=== PATIENT | female | born 1935 | race Caucasian/White ===

== ENCOUNTER 2021-03-02 13:55 | Outpatient (CLI) | payer MEDICARE ==
[2021-03-02 15:58] LABS: Hemoglobin 12.4 g/dL (12.0-15.5); Mean Corpuscular HGB CONC 30.2 g/dL (32.0-36.0); Mean Corpuscular Hemoglobin 26.8 pg (27.0-33.0); Mean Corpuscular Volume 88.6 fl (81.6-98.3); Platelet Count 444 10x3/uL (150-450); RBC Distribution Width 15.8 % (11.5-14.5); Red Blood Cell (RBC) Count 4.63 10x6/uL (3.90-5.03); White Blood Cell (WBC) Count 16.1 10x3/uL (3.5-10.5)
[2021-03-02 16:02] LABS: Prothrombin Time 10.6 sec (9.5-12.1)
[2021-03-02 17:13] LABS: Anion Gap 20 mmol/L (10-20); BUN (Urea Nitrogen) 19 mg/dL (9.8-20.1); Calc. Creatinine Clearance 0 mL/min (70-130); Calcium 9.6 mg/dL (7.8-10.44); Carbon Dioxide 24 mmol/L (23-31); Chloride 98 mmol/L (98-107); Glucose 107 mg/dL (83-110); Potassium 4.7 mmol/L (3.5-5.1); Sodium 137 mmol/L (136-145)
[2021-03-03 01:53] LABS: SARS-CoV-2 PCR by NAA Not Detected (NotDetected)
== END 2021-03-02 13:56 | disposition home or self-care (01) ==
LOC: CSHLAB 13:55
PROVIDERS: ATTEND Specialist
DX: Z01.818 Encounter for other preprocedural examination (principal); Z20.822 Contact with and (suspected) exposure to COVID-19; R94.31 Abnormal electrocardiogram [ECG] [EKG]
CPT/HCPCS: 80048; 85027; 85610; 85730; 87635; 93005; 93010; U0003; U0005

== ENCOUNTER → 2021-03-07 | Day surgery (SDC) | payer MEDICARE ==
[~2021-03-07] MED LIST: Aspirin 325 MG TAB ONE; Atropine Sulfate 0.4 mg/1 ml Vial ONE; Fentanyl 100 MCG/2 ML VIAL ONE; Heparin 10,000 UNITS/ 10 ML VIAL ONE; Lidocaine 1% (PF) 30 ML VIAL ONE; Midazolam HCl 2 mg/2 ml Vial ONE; PHENYLEPHRINE-NS 100 MCG/ML 10 ML SYRINGE ONE
== END ==
LOC: CSHSDC 07:53
PROVIDERS: ATTEND Specialist
DX: I65.23 Occlusion and stenosis of bilateral carotid arteries (principal); I25.10 Atherosclerotic heart disease of native coronary artery without angina pectoris; I10 Essential (primary) hypertension; E78.5 Hyperlipidemia, unspecified; E11.9 Type 2 diabetes mellitus without complications; Z95.5 Presence of coronary angioplasty implant and graft; I34.0 Nonrheumatic mitral (valve) insufficiency; M81.0 Age-related osteoporosis without current pathological fracture
CPT/HCPCS: 36140; 36215; 36222; 36225; 36227; 93005; C1760; 93010; 99152; 99153; J0461; J1644; J2001; J2250; J3010

== ENCOUNTER 2022-09-19 12:04 | Inpatient (IN) | payer MEDICARE ==
[2022-09-19 13:55] LABS: #Basophils 0.1 10x3/uL (0.0-0.2); #Monocytes 1.3 10x3/uL (0.0-1.1); %Basophils 0.5 % (0.0-2.0); %Eosinophils 0.2 % (0.0-6.0); %Lymphocytes 13.5 % (18.0-47.0); %Monocytes 9.6 % (0.0-10.0); %Neutrophils 75.8 % (40.0-75.0); Hemoglobin 12.5 g/dL (12.0-15.5); Mean Corpuscular HGB CONC 32.8 g/dL (32.0-36.0); Mean Corpuscular Hemoglobin 27.8 pg (27.0-33.0); Mean Corpuscular Volume 84.9 fl (81.6-98.3); Mean Platelet Volume 9.4 fl (7.4-10.4); Platelet Count 429 10x3/uL (150-450); RBC Distribution Width 14.2 % (11.5-14.5); Red Blood Cell (RBC) Count 4.49 10x6/uL (3.90-5.03); White Blood Cell (WBC) Count 13.2 10x3/uL (3.5-10.5)
[2022-09-19 14:06] LABS: CRP (Inflammatory) 1.22 mg/dL (= or < 0.5)
[2022-09-19 14:08] LABS: ALT (SGPT) 8 U/L (8-55); AST (SGOT) 14 U/L (5-34); Alkaline Phosphatase 87 U/L (40-110); Anion Gap 18 mmol/L (10-20); BUN (Urea Nitrogen) 16 mg/dL (9.8-20.1); Bilirubin, Total 0.5 mg/dL (0.2-1.2); Calc. Creatinine Clearance 0 mL/min (70-130); Calcium 8.8 mg/dL (7.8-10.44); Carbon Dioxide 20 mmol/L (23-31); Chloride 100 mmol/L (98-107); Estimated GFR 44; Globulin 2.7 g/dL (2.4-3.5); Glucose 162 mg/dL (83-110); Potassium 3.4 mmol/L (3.5-5.1); Protein, Total 6.7 g/dL (5.8-8.1); Sodium 135 mmol/L (136-145)
[2022-09-19] MEDS ORDERED: Vancomycin HCl 500 MG VIAL ONE (14:18)
[2022-09-19 14:42] LABS: SARS-CoV-2 NAA Rapid Test Not Detected (NotDetected)
[2022-09-19 15:23] LABS: Bilirubin Neg (Negative); Blood, Urine 50 (Negative); Clarity Cloudy (Clear); Glucose, Urine (Dipstick) Normal (Negative); Ketone, Urine Negative (Negative); Leukocyte 500 (Negative); Nitrite Positive (Negative); Protein, Urine (Dipstick) 30 mg/dl (Neg-Trace); Specific Gravity, Urine 1.025 (1.005-1.030); Urobilinogen Normal mg/dL (Less than 2)
[2022-09-19 15:45] LABS: WBC/HPF Greater than 50 HPF (0-3)
[2022-09-19 15:46] LABS: Bacteria/HPF 3+ HPF (None Seen); Squamous Epithelial 0-3 HPF (0-3); Transitional Epithelial 0-3 HPF (None Seen)
[2022-09-19 15:47] LABS: Mucous/LPF 1+ LPF (<2+)
[2022-09-19] MEDS ORDERED: cefTRIAXone\\ROCEPHIN 2 GM VIAL ONE (16:34)
[2022-09-19 16:36] LABS: Lactic Acid 3.8 mmol/L (0.5-2.2)
[2022-09-19 16:49] LABS: Troponin I 0.024 ng/mL (< 0.028)
[2022-09-19] MEDS ORDERED: Ondansetron PF 4 MG/2 ML Vial IVP PRN (17:05)
[2022-09-19] MEDS ORDERED: Dextrose 5% in Water 1,000 ML IV PRN (17:05)
[2022-09-19] MEDS ORDERED: Dextrose 50% Abboject 50 ML SYRINGE SLOW IVP PRN (17:05)
[2022-09-19] MEDS ORDERED: HumaLOG 300 UNITS/3 ML VIAL SC PRN ×2 (17:05)
[2022-09-19] MEDS ORDERED: Ondansetron ODT 4 MG TAB PO PRN (17:05)
[2022-09-19] MEDS ORDERED: hydrALAZINE 20 MG/ML VIAL SLOW IVP PRN (17:05)
[2022-09-19] MEDS ORDERED: Acetaminophen 500 MG TAB PO PRN (17:05)
[2022-09-19] MEDS ORDERED: Communication Order-Pharmacy FS PRN (17:05)
[2022-09-19 19:51] LABS: Troponin I 0.029 ng/mL (< 0.028)
[2022-09-19 20:06] LABS: Lactic Acid 3.6 mmol/L (0.5-2.2)
[2022-09-19 21:28] VITALS: BMI 29.1
[2022-09-19] MEDS: Sodium Chloride 0.9% 1,000 ML IV SCH (22:14)
[2022-09-19] MEDS: traZODone HCl 50 MG TAB PO SCH (22:15)
[2022-09-20] MEDS ORDERED: FLU VACC QS2022-23(65YR UP)/PF 240 MCG/0.7 ML SYRINGE IM ONE (02:00)
[2022-09-20 05:20] LABS: Anion Gap 12 mmol/L (10-20); BUN (Urea Nitrogen) 9 mg/dL (9.8-20.1); Calc. Creatinine Clearance 59 mL/min (70-130); Calcium 8.1 mg/dL (7.8-10.44); Carbon Dioxide 24 mmol/L (23-31); Chloride 108 mmol/L (98-107); Estimated GFR 72; Glucose 119 mg/dL (83-110); Sodium 141 mmol/L (136-145)
[2022-09-20 05:39] LABS: #Basophils 0.1 10x3/uL (0.0-0.2); #Eosinphils 0.1 10x3/uL (0.0-0.5); #Monocytes 1.1 10x3/uL (0.0-1.1); #Neutrophils 8.1 10x3/uL (1.5-8.4); %Basophils 0.7 % (0.0-2.0); %Eosinophils 1.1 % (0.0-6.0); %Neutrophils 73.7 % (40.0-75.0); Hemoglobin 10.6 g/dL (12.0-15.5); Mean Corpuscular HGB CONC 33.5 g/dL (32.0-36.0); Mean Corpuscular Hemoglobin 28.2 pg (27.0-33.0); Mean Platelet Volume 9.3 fl (7.4-10.4); Platelet Count 372 10x3/uL (150-450); RBC Distribution Width 14.2 % (11.5-14.5); Red Blood Cell (RBC) Count 3.76 10x6/uL (3.90-5.03)
[2022-09-20] MEDS: Sodium Chloride 0.9% 1,000 ML IV SCH ×3 (05:57→15:06)
[2022-09-20] MEDS: Levothyroxine Sodium 50 MCG TAB PO SCH (05:57)
[2022-09-20] MEDS: Escitalopram Oxalate 20 mg Tablet PO SCH (08:38)
[2022-09-20] MEDS: Famotidine 20 MG TAB PO SCH (08:38)
[2022-09-20] MEDS: Aspirin Chewable 81 MG TAB PO SCH (08:38)
[2022-09-20] MEDS: Pregabalin 75 MG CAP PO SCH (08:40)
[2022-09-20 13:12] LABS: Hemoglobin A1c 6.2 % (4.0-6.0)
[2022-09-20] MEDS ORDERED: Potassium Chloride 20 MEQ TAB PO SCH (14:00)
[2022-09-20] MEDS ORDERED: Vancomycin HCl 1 GM in Sodium Chloride 0.9% 250 ML 250 ML IVPB SCH (15:00)
[2022-09-20] MEDS ORDERED: cefTRIAXone\\ROCEPHIN 2 GM in Sodium Chloride 0.9% 100 ML IVPB SCH (16:30)
[2022-09-20] MEDS: metFORMIN 500 MG TAB PO SCH (17:16)
[2022-09-20] MEDS: Potassium Chloride 20 MEQ TAB PO SCH (17:16)
[2022-09-20] MEDS: Lisinopril 10 MG TAB PO SCH (22:04)
[2022-09-20] MEDS: traZODone HCl 50 MG TAB PO SCH (22:04)
[2022-09-21 05:04] LABS: #Basophils 0.1 10x3/uL (0.0-0.2); #Eosinphils 0.7 10x3/uL (0.0-0.5); #Monocytes 0.9 10x3/uL (0.0-1.1); #Neutrophils 5.9 10x3/uL (1.5-8.4); %Basophils 1.2 % (0.0-2.0); %Eosinophils 6.3 % (0.0-6.0); %Lymphocytes 26.9 % (18.0-47.0); %Monocytes 8.8 % (0.0-10.0); %Neutrophils 56.6 % (40.0-75.0); Mean Corpuscular HGB CONC 32.7 g/dL (32.0-36.0); Mean Corpuscular Hemoglobin 27.8 pg (27.0-33.0); Mean Corpuscular Volume 85.1 fl (81.6-98.3); Mean Platelet Volume 9.4 fl (7.4-10.4); Platelet Count 355 10x3/uL (150-450); RBC Distribution Width 14.5 % (11.5-14.5); Red Blood Cell (RBC) Count 3.95 10x6/uL (3.90-5.03); White Blood Cell (WBC) Count 10.4 10x3/uL (3.5-10.5)
[2022-09-21 05:07] LABS: Anion Gap 11 mmol/L (10-20); BUN (Urea Nitrogen) 12 mg/dL (9.8-20.1); Calc. Creatinine Clearance 59 mL/min (70-130); Calcium 8.4 mg/dL (7.8-10.44); Carbon Dioxide 24 mmol/L (23-31); Chloride 111 mmol/L (98-107); Estimated GFR 72; Glucose 129 mg/dL (83-110); Potassium 4.2 mmol/L (3.5-5.1); Sodium 142 mmol/L (136-145)
[2022-09-21] MEDS: Levothyroxine Sodium 50 MCG TAB PO SCH (05:28)
[2022-09-21 08:25] VITALS: TEMP 98.4
[2022-09-21] MEDS ORDERED: Anastrozole 1 MG TAB PO SCH (09:00)
[2022-09-21] MEDS: Aspirin Chewable 81 MG TAB PO SCH (09:38)
[2022-09-21] MEDS: Potassium Chloride 20 MEQ TAB PO SCH (09:38)
[2022-09-21] MEDS: Escitalopram Oxalate 20 mg Tablet PO SCH (09:38)
[2022-09-21] MEDS: metFORMIN 500 MG TAB PO SCH (09:38)
[2022-09-21] MEDS: Famotidine 20 MG TAB PO SCH (09:38)
[2022-09-21] MEDS: Lisinopril 10 MG TAB PO SCH (09:39)
[2022-09-21] MEDS: Pregabalin 75 MG CAP PO SCH (09:39)
[2022-09-21 09:44] VITALS: BP 161/70
[2022-09-21] MEDS: Sodium Chloride 0.9% 1,000 ML IV SCH (10:06)
== END 2022-09-21 11:51 | disposition home or self-care (01) | DRG 871 ==
LOC: CSHERS 12:04 → CSHERHOLD 18:34 → CSHTELE 21:07
PROVIDERS: ADMIT Family Medicine; ATTEND Family Medicine
DX: A41.9 Sepsis, unspecified organism (principal); G93.41 Metabolic encephalopathy; I50.32 Chronic diastolic (congestive) heart failure; N17.9 Acute kidney failure, unspecified; N30.01 Acute cystitis with hematuria; I13.0 Hypertensive heart and chronic kidney disease with heart failure and stage 1 through stage 4 chronic kidney disease, or unspecified chronic kidney disease; E78.00 Pure hypercholesterolemia, unspecified; G89.29 Other chronic pain; F32.A Depression, unspecified; K21.9 Gastro-esophageal reflux disease without esophagitis; I25.10 Atherosclerotic heart disease of native coronary artery without angina pectoris; E66.01 Morbid (severe) obesity due to excess calories; N18.30 Chronic kidney disease, stage 3 unspecified; E11.22 Type 2 diabetes mellitus with diabetic chronic kidney disease; E87.6 Hypokalemia; Z20.822 Contact with and (suspected) exposure to COVID-19; Z88.1 Allergy status to other antibiotic agents; Z91.040 Latex allergy status; Z88.8 Allergy status to other drugs, medicaments and biological substances; Z68.29 Body mass index [BMI] 29.0-29.9, adult
CPT/HCPCS: 36415; 36416; 71045; 80048; 80053; 81003; 81015; 82550; 83036; 83605; 83880; 84484; 85025; 86140; 87040; 87077; 87086; 87186; 93005; J0696; J3370; J3490; J7050

== ENCOUNTER 2022-11-03 14:56 | Inpatient (IN) | payer MEDICARE ==
[2022-11-03 16:08] LABS: #Basophils 0.1 10x3/uL (0.0-0.2); #Eosinphils 0.3 10x3/uL (0.0-0.5); #Monocytes 1.1 10x3/uL (0.0-1.1); #Neutrophils 8.2 10x3/uL (1.5-8.4); %Basophils 0.8 % (0.0-2.0); %Eosinophils 2.6 % (0.0-6.0); %Lymphocytes 26.8 % (18.0-47.0); %Monocytes 7.9 % (0.0-10.0); %Neutrophils 61.6 % (40.0-75.0); Hemoglobin 11.3 g/dL (12.0-15.5); Mean Corpuscular HGB CONC 32.4 g/dL (32.0-36.0); Mean Corpuscular Volume 86.4 fl (81.6-98.3); Mean Platelet Volume 9.6 fl (7.4-10.4); Platelet Count 476 10x3/uL (150-450); RBC Distribution Width 15.2 % (11.5-14.5); Red Blood Cell (RBC) Count 4.04 10x6/uL (3.90-5.03); White Blood Cell (WBC) Count 13.2 10x3/uL (3.5-10.5)
[2022-11-03 16:27] LABS: ALT (SGPT) 9 U/L (8-55); AST (SGOT) 13 U/L (5-34); Albumin 3.8 g/dL (3.4-4.8); Alkaline Phosphatase 71 U/L (40-110); Anion Gap 17 mmol/L (10-20); BUN (Urea Nitrogen) 36 mg/dL (9.8-20.1); Bilirubin, Total 0.3 mg/dL (0.2-1.2); Calc. Creatinine Clearance 0 mL/min (70-130); Calcium 8.7 mg/dL (7.8-10.44); Carbon Dioxide 19 mmol/L (23-31); Chloride 99 mmol/L (98-107); Estimated GFR 26; Globulin 2.4 g/dL (2.4-3.5); Glucose 102 mg/dL (83-110); Magnesium 1.5 mg/dL (1.6-2.6); Potassium 5.7 mmol/L (3.5-5.1); Protein, Total 6.2 g/dL (5.8-8.1); Sodium 129 mmol/L (136-145)
[2022-11-03 16:30] LABS: Bilirubin Neg (Negative); Blood, Urine Negative (Negative); Clarity Clear (Clear); Glucose, Urine (Dipstick) Normal (Negative); Ketone, Urine Negative (Negative); Leukocyte Negative (Negative); Nitrite Negative (Negative); Protein, Urine (Dipstick) Negative (Neg-Trace); Specific Gravity, Urine 1.015 (1.005-1.030); Urobilinogen Normal mg/dL (Less than 2)
[2022-11-03] MEDS ORDERED: Calcium Gluc 4.6 MEQ/10 ML (100 MG/ML) ONE (16:50)
[2022-11-03] MEDS ORDERED: Sodium Bicarb 50 MEQ/50 ML VIAL ONE ×2 (16:50)
[2022-11-03] MEDS ORDERED: Cefepime 2 GM VIAL ONE (16:51)
[2022-11-03 17:09] LABS: SARS-CoV-2 NAA Rapid Test Not Detected (NotDetected)
[2022-11-03] MEDS ORDERED: Dextrose 5% in Water 1,000 ML IV PRN (18:55)
[2022-11-03] MEDS ORDERED: Dextrose 50% Abboject 50 ML SYRINGE SLOW IVP PRN (18:55)
[2022-11-03] MEDS ORDERED: Ondansetron PF 4 MG/2 ML Vial IVP PRN (18:56)
[2022-11-03] MEDS ORDERED: Ondansetron ODT 4 MG TAB PO PRN (18:56)
[2022-11-03] MEDS ORDERED: Sodium Chloride 0.9% 1,000 ML IV SCH (19:00)
[2022-11-03 20:40] VITALS: BMI 27.8
[2022-11-03] MEDS ORDERED: Famotidine/PF 20 mg/2ml Vial SLOW IVP SCH (21:00)
[2022-11-03 22:49] LABS: Lactic Acid 2.9 mmol/L (0.5-2.2)
[2022-11-03 22:52] LABS: Creatinine, Urine 95.59 mg/dL (47-110)
[2022-11-03 22:53] LABS: Anion Gap 13 mmol/L (10-20); BUN (Urea Nitrogen) 30 mg/dL (9.8-20.1); Calc. Creatinine Clearance 29 mL/min (70-130); Calcium 8.8 mg/dL (7.8-10.44); Carbon Dioxide 23 mmol/L (23-31); Chloride 103 mmol/L (98-107); Estimated GFR 33; Glucose 165 mg/dL (83-110); Magnesium 1.4 mg/dL (1.6-2.6); Potassium 5.3 mmol/L (3.5-5.1); Sodium 134 mmol/L (136-145)
[2022-11-03] MEDS ORDERED: Sodium Bicarbonate 75 MEQ, Admixture Fee 1 EACH in Sodium Chloride 0.45% 1,000 ML IV SCH (23:00)
[2022-11-03] MEDS ORDERED: Magnesium 2 GM/50 ML(in water) 2 GM in Premix Bag 1 BAG IVPB SCH (23:00)
[2022-11-03] MEDS ORDERED: LOKELMA 10 GM PACKET PO SCH (23:00)
[2022-11-03] MEDS ORDERED: FLU VACC QS2022-23(65YR UP)/PF 240 MCG/0.7 ML SYRINGE IM ONE (23:45)
[2022-11-03] MEDS: Acetaminophen 325 MG TAB PO PRN (23:55)
[2022-11-04] MEDS: Levothyroxine Sodium 50 MCG TAB PO SCH (05:27)
[2022-11-04 07:02] LABS: Anion Gap 15 mmol/L (10-20); BUN (Urea Nitrogen) 25 mg/dL (9.8-20.1); Calc. Creatinine Clearance 33 mL/min (70-130); Calcium 8.7 mg/dL (7.8-10.44); Carbon Dioxide 24 mmol/L (23-31); Chloride 101 mmol/L (98-107); Estimated GFR 37; Glucose 117 mg/dL (83-110); Phosphorus 3.3 mg/dL (2.3-4.7); Potassium 5.3 mmol/L (3.5-5.1); Sodium 135 mmol/L (136-145)
[2022-11-04 07:26] LABS: #Basophils 0.1 10x3/uL (0.0-0.2); #Eosinphils 0.6 10x3/uL (0.0-0.5); #Monocytes 1.2 10x3/uL (0.0-1.1); #Neutrophils 7.4 10x3/uL (1.5-8.4); %Basophils 1.1 % (0.0-2.0); %Eosinophils 5.1 % (0.0-6.0); %Monocytes 9.5 % (0.0-10.0); Hemoglobin 10.4 g/dL (12.0-15.5); Mean Corpuscular HGB CONC 32.4 g/dL (32.0-36.0); Mean Corpuscular Hemoglobin 28.2 pg (27.0-33.0); Mean Platelet Volume 9.9 fl (7.4-10.4); Platelet Count 445 10x3/uL (150-450); RBC Distribution Width 15.4 % (11.5-14.5); Red Blood Cell (RBC) Count 3.69 10x6/uL (3.90-5.03); White Blood Cell (WBC) Count 12.3 10x3/uL (3.5-10.5)
[2022-11-04] MEDS: Pregabalin 75 MG CAP PO SCH (09:15)
[2022-11-04] MEDS: Aspirin Chewable 81 MG TAB PO SCH (09:15)
[2022-11-04] MEDS: Cefepime 1 GM in Sodium Chloride 0.9% 100 ML IVPB SCH ×2 (09:16→20:58)
[2022-11-04] MEDS: Sodium Bicarbonate 75 MEQ, Admixture Fee 1 EACH in Sodium Chloride 0.45% 1,000 ML IV SCH ×2 (19:32→19:38)
[2022-11-04] MEDS: Famotidine/PF 20 mg/2ml Vial SLOW IVP SCH (20:59)
[2022-11-05] MEDS: HYDROcodone/Acetaminophen 10/325 mg Tablet PO PRN ×2 (00:36→09:42)
[2022-11-05 06:01] LABS: #Basophils 0.1 10x3/uL (0.0-0.2); #Eosinphils 0.8 10x3/uL (0.0-0.5); #Monocytes 0.9 10x3/uL (0.0-1.1); #Neutrophils 5.6 10x3/uL (1.5-8.4); %Basophils 0.9 % (0.0-2.0); %Eosinophils 8.1 % (0.0-6.0); %Lymphocytes 24.4 % (18.0-47.0); %Monocytes 9.1 % (0.0-10.0); %Neutrophils 57.2 % (40.0-75.0); Hemoglobin 9.9 g/dL (12.0-15.5); Mean Corpuscular HGB CONC 32.9 g/dL (32.0-36.0); Mean Corpuscular Hemoglobin 27.9 pg (27.0-33.0); Mean Corpuscular Volume 84.8 fl (81.6-98.3); Platelet Count 379 10x3/uL (150-450); RBC Distribution Width 15.1 % (11.5-14.5); Red Blood Cell (RBC) Count 3.55 10x6/uL (3.90-5.03); White Blood Cell (WBC) Count 9.8 10x3/uL (3.5-10.5)
[2022-11-05 06:06] LABS: ALT (SGPT) 9 U/L (8-55); AST (SGOT) 17 U/L (5-34); Albumin 3.1 g/dL (3.4-4.8); Alkaline Phosphatase 69 U/L (40-110); Anion Gap 16 mmol/L (10-20); BUN (Urea Nitrogen) 19 mg/dL (9.8-20.1); Bilirubin, Total 0.3 mg/dL (0.2-1.2); Calc. Creatinine Clearance 45 mL/min (70-130); Calcium 8.1 mg/dL (7.8-10.44); Carbon Dioxide 27 mmol/L (23-31); Chloride 101 mmol/L (98-107); Estimated GFR 55; Globulin 2.7 g/dL (2.4-3.5); Glucose 104 mg/dL (83-110); Magnesium 1.6 mg/dL (1.6-2.6); Potassium 3.9 mmol/L (3.5-5.1); Protein, Total 5.8 g/dL (5.8-8.1); Sodium 140 mmol/L (136-145)
[2022-11-05] MEDS: Levothyroxine Sodium 50 MCG TAB PO SCH (06:20)
[2022-11-05] MEDS ORDERED: Magnesium Sulfate 4 GM in Sodium Chloride 0.9% 250 ML 250 ML IVPB SCH (08:00)
[2022-11-05] MEDS: Aspirin Chewable 81 MG TAB PO SCH (08:42)
[2022-11-05] MEDS: Pregabalin 75 MG CAP PO SCH (08:42)
[2022-11-05] MEDS: Cefepime 1 GM in Sodium Chloride 0.9% 100 ML IVPB SCH (08:44)
[2022-11-05] MEDS: Magnesium 2 GM/50 ML(in water) 2 GM in Premix Bag 1 BAG IVPB SCH ×2 (08:44→11:52)
[2022-11-05 11:52] LABS: Magnesium 1.8 mg/dL (1.6-2.6)
[2022-11-05] MEDS: Insulin Regular 300 UNITS/3 ML VIAL SC PRN ×2 (11:53→21:00)
[2022-11-05] MEDS ORDERED: traZODone HCl 50 MG TAB PO PRN (16:41)
[2022-11-05 18:02] LABS: Magnesium 2.9 mg/dL (1.6-2.6)
[2022-11-05] MEDS: hydrALAZINE 20 MG/ML VIAL SLOW IVP PRN (20:59)
[2022-11-05] MEDS: Famotidine/PF 20 mg/2ml Vial SLOW IVP SCH (20:59)
[2022-11-05] MEDS ORDERED: Atorvastatin Calcium 40 MG TAB PO SCH (21:00)
[2022-11-06] MEDS: Acetaminophen 325 MG TAB PO PRN ×2 (01:31→11:39)
[2022-11-06 05:01] LABS: #Basophils 0.1 10x3/uL (0.0-0.2); #Eosinphils 0.7 10x3/uL (0.0-0.5); #Monocytes 1.5 10x3/uL (0.0-1.1); #Neutrophils 8.8 10x3/uL (1.5-8.4); %Basophils 0.7 % (0.0-2.0); %Eosinophils 4.7 % (0.0-6.0); %Lymphocytes 19.3 % (18.0-47.0); %Monocytes 10.6 % (0.0-10.0); %Neutrophils 64.3 % (40.0-75.0); Hemoglobin 10.8 g/dL (12.0-15.5); Mean Corpuscular HGB CONC 33.4 g/dL (32.0-36.0); Mean Corpuscular Hemoglobin 28.1 pg (27.0-33.0); Mean Corpuscular Volume 83.9 fl (81.6-98.3); Mean Platelet Volume 9.5 fl (7.4-10.4); Platelet Count 425 10x3/uL (150-450); RBC Distribution Width 15.2 % (11.5-14.5); Red Blood Cell (RBC) Count 3.85 10x6/uL (3.90-5.03); White Blood Cell (WBC) Count 13.7 10x3/uL (3.5-10.5)
[2022-11-06 05:08] LABS: Anion Gap 15 mmol/L (10-20); BUN (Urea Nitrogen) 17 mg/dL (9.8-20.1); Calc. Creatinine Clearance 49 mL/min (70-130); Calcium 8.9 mg/dL (7.8-10.44); Carbon Dioxide 25 mmol/L (23-31); Chloride 102 mmol/L (98-107); Estimated GFR 61; Glucose 125 mg/dL (83-110); Potassium 3.9 mmol/L (3.5-5.1); Sodium 138 mmol/L (136-145)
[2022-11-06] MEDS: Levothyroxine Sodium 50 MCG TAB PO SCH (06:19)
[2022-11-06] MEDS: HYDROcodone/Acetaminophen 10/325 mg Tablet PO PRN ×2 (08:51→16:57)
[2022-11-06] MEDS: Aspirin Chewable 81 MG TAB PO SCH (08:52)
[2022-11-06] MEDS: Pregabalin 75 MG CAP PO SCH (08:52)
[2022-11-06] MEDS ORDERED: Anastrozole 1 MG TAB PO SCH (09:00)
[2022-11-06] MEDS ORDERED: Chlorthalidone 25 MG TAB PO SCH (09:00)
[2022-11-06] MEDS ORDERED: Escitalopram Oxalate 10 mg Tablet PO SCH (09:00)
[2022-11-06 12:06] VITALS: TEMP 98.3
[2022-11-06] MEDS: hydrALAZINE 20 MG/ML VIAL SLOW IVP PRN (12:10)
[2022-11-06] MEDS ORDERED: Lisinopril 20 MG TAB PO SCH (14:00)
[2022-11-06] MEDS ORDERED: Labetalol HCl 100 MG/20 ML VIAL SLOW IVP SCH (14:00)
[2022-11-06 16:32] VITALS: BP 167/72
[2022-11-07] MEDS ORDERED: Lisinopril 20 MG TAB PO SCH (09:00)
== END 2022-11-06 18:00 | DRG 683 ==
LOC: CSHERS 14:56 → CSHTELE 20:23
PROVIDERS: ADMIT Family Medicine; ATTEND Internal Medicine
DX: N17.9 Acute kidney failure, unspecified (principal); E87.1 Hypo-osmolality and hyponatremia; I50.32 Chronic diastolic (congestive) heart failure; E87.20 Acidosis, unspecified; I13.0 Hypertensive heart and chronic kidney disease with heart failure and stage 1 through stage 4 chronic kidney disease, or unspecified chronic kidney disease; K21.9 Gastro-esophageal reflux disease without esophagitis; I25.10 Atherosclerotic heart disease of native coronary artery without angina pectoris; Z20.822 Contact with and (suspected) exposure to COVID-19; E78.5 Hyperlipidemia, unspecified; E11.22 Type 2 diabetes mellitus with diabetic chronic kidney disease; E66.01 Morbid (severe) obesity due to excess calories; G89.29 Other chronic pain; F32.A Depression, unspecified; E86.0 Dehydration; E87.5 Hyperkalemia; E83.42 Hypomagnesemia; N18.30 Chronic kidney disease, stage 3 unspecified; K52.9 Noninfective gastroenteritis and colitis, unspecified; Z88.1 Allergy status to other antibiotic agents; Z91.040 Latex allergy status; Z91.09 Other allergy status, other than to drugs and biological substances; Z79.82 Long term (current) use of aspirin; Z79.84 Long term (current) use of oral hypoglycemic drugs; Z79.899 Other long term (current) drug therapy; Z95.5 Presence of coronary angioplasty implant and graft; Z85.3 Personal history of malignant neoplasm of breast; Z98.890 Other specified postprocedural states; Z90.710 Acquired absence of both cervix and uterus; Z68.27 Body mass index [BMI] 27.0-27.9, adult
CPT/HCPCS: 36415; 36416; 51701; 71045; 80048; 80053; 81003; 82550; 82570; 83605; 83735; 84100; 84300; 84484; 85025; 86850; 86900; 86901; 87040; 87086; 93005; 93010; 94760; 96361; 96365; 96375; J0360; J0610; J0692; J1815; J3475; J3490; J7050; S0028

== ENCOUNTER 2023-02-25 13:13 | Emergency (ER) | payer MEDICARE ==
[2023-02-25 14:04] LABS: #Basophils 0.1 10x3/uL (0.0-0.2); #Eosinphils 0.3 10x3/uL (0.0-0.5); #Neutrophils 6.7 10x3/uL (1.5-8.4); %Basophils 0.8 % (0.0-2.0); %Lymphocytes 24.9 % (18.0-47.0); %Monocytes 9.5 % (0.0-10.0); %Neutrophils 61.4 % (40.0-75.0); Hemoglobin 10.3 g/dL (12.0-15.5); Mean Corpuscular HGB CONC 32.5 g/dL (32.0-36.0); Mean Corpuscular Hemoglobin 27.8 pg (27.0-33.0); Mean Corpuscular Volume 85.4 fl (81.6-98.3); Mean Platelet Volume 9.3 fl (7.4-10.4); Platelet Count 475 10x3/uL (150-450); RBC Distribution Width 14.9 % (11.5-14.5); Red Blood Cell (RBC) Count 3.71 10x6/uL (3.90-5.03); White Blood Cell (WBC) Count 10.8 10x3/uL (3.5-10.5)
[2023-02-25 14:17] LABS: Anion Gap 19 mmol/L (10-20); BUN (Urea Nitrogen) 23 mg/dL (9.8-20.1); Calc. Creatinine Clearance 0 mL/min (70-130); Calcium 9.2 mg/dL (7.8-10.44); Carbon Dioxide 22 mmol/L (23-31); Chloride 97 mmol/L (98-107); Estimated GFR 31; Glucose 97 mg/dL (83-110); Magnesium 1.2 mg/dL (1.6-2.6); Potassium 4.2 mmol/L (3.5-5.1); Sodium 134 mmol/L (136-145)
[2023-02-25] MEDS ORDERED: Magnesium 2 GM/50 ML BAG (IN WATER) ONE (14:56)
== END 2023-02-25 17:56 | disposition home or self-care (01) ==
LOC: CSHERS 13:13
DX: E83.42 Hypomagnesemia (principal); E11.9 Type 2 diabetes mellitus without complications; I10 Essential (primary) hypertension
CPT/HCPCS: 80048; 83735; 85025; 96374; J3475

== ENCOUNTER 2023-10-03 16:59 | Inpatient (IN) | payer MEDICARE ==
[2023-10-03] MEDS ORDERED: Senokot S 8.6-50 MG TAB PO PRN (18:03)
[2023-10-03] MEDS ORDERED: Guaifenesin DM 100-10/5 ML UDCUP PO PRN (18:03)
[2023-10-03] MEDS ORDERED: Calcium Carbonate 500 MG ChewTAB PO PRN (18:03)
[2023-10-03] MEDS ORDERED: HYDROcodone/Acetaminophen 5/325 mg Tablet PO PRN (18:03)
[2023-10-03] MEDS ORDERED: Acetaminophen 325 MG TAB PO PRN (18:03)
[2023-10-03] MEDS ORDERED: Ipratropium/Albuterol 3 ML NEB NEB PRN (18:54)
[2023-10-03] MEDS ORDERED: NOREPINEPHRINE 8 MG/250 ML-D5W 250 ML ONE (21:24)
[2023-10-03 21:30] VITALS: BMI 31.7
[2023-10-03] MEDS ORDERED: Sodium Bicarbonate Tab 325 MG TAB PO SCH (21:45)
[2023-10-03] MEDS ORDERED: Magnesium 2 GM/50 ML(in water) 2 GM in Premix 1 BAG IVPB SCH (22:00)
[2023-10-03] MEDS ORDERED: NOREPINEPHRINE 8 MG/250 ML-D5W 250 ML IVPB SCH (22:00)
[2023-10-03] MEDS ORDERED: Sodium Bicarbonate 150 MEQ in Dextrose 5% in Water 1,000 ML IV SCH (23:00)
[2023-10-04 02:53] LABS: Bilirubin Neg (Negative); Blood, Urine Negative (Negative); Clarity Clear (Clear); Glucose, Urine (Dipstick) Normal (Negative); Ketone, Urine Negative (Negative); Leukocyte Negative (Negative); Nitrite Negative (Negative); Protein, Urine (Dipstick) 15 mg/dl (Neg-Trace); Urobilinogen Normal mg/dL (Less than 2)
[2023-10-04 03:32] LABS: Bacteria/HPF Rare-Few HPF (None Seen); RBC/HPF None Seen HPF (0-3); Squamous Epithelial 0-3 HPF (0-3); WBC/HPF 0-3 HPF (0-3)
[2023-10-04 04:07] LABS: Anion Gap 13 mmol/L (10-20); BUN (Urea Nitrogen) 24 mg/dL (9.8-20.1); Calc. Creatinine Clearance 30 mL/min (70-130); Calcium 8.6 mg/dL (7.8-10.44); Carbon Dioxide 24 mmol/L (23-31); Chloride 100 mmol/L (98-107); Estimated GFR 29; Glucose 114 mg/dL (83-110); Potassium 4.8 mmol/L (3.5-5.1); Sodium 132 mmol/L (136-145)
[2023-10-04 04:19] LABS: #Basophils 0.1 10x3/uL (0.0-0.2); #Eosinphils 0.6 10x3/uL (0.0-0.5); #Monocytes 1.2 10x3/uL (0.0-1.1); #Neutrophils 8.2 10x3/uL (1.5-8.4); %Basophils 0.8 % (0.0-2.0); %Eosinophils 4.6 % (0.0-6.0); %Lymphocytes 21.2 % (18.0-47.0); Hematocrit 26.9 % (34.9-44.5); Hemoglobin 8.6 g/dL (12.0-15.5); Mean Corpuscular Hemoglobin 27.1 pg (27.0-33.0); Mean Corpuscular Volume 84.9 fl (81.6-98.3); Mean Platelet Volume 9.5 fl (7.4-10.4); Platelet Count 420 10x3/uL (150-450); RBC Distribution Width 16.5 % (11.5-14.5); Red Blood Cell (RBC) Count 3.17 10x6/uL (3.90-5.03); White Blood Cell (WBC) Count 12.9 10x3/uL (3.5-10.5)
[2023-10-04] MEDS: Levothyroxine Sodium 25 MCG TAB PO SCH (05:47)
[2023-10-04] MEDS: Escitalopram Oxalate 10 mg Tablet PO SCH (08:26)
[2023-10-04] MEDS: Aspirin Chewable 81 MG TAB PO SCH (08:26)
[2023-10-04] MEDS: Atorvastatin Calcium 40 MG TAB PO SCH (08:26)
[2023-10-04] MEDS: Sodium Bicarbonate Tab 325 MG TAB PO SCH ×3 (08:26→20:23)
[2023-10-05] MEDS: Levothyroxine Sodium 25 MCG TAB PO SCH (06:12)
[2023-10-05 12:37] VITALS: TEMP 98.5
[2023-10-05 13:24] VITALS: BP 154/55
[2023-10-05] MEDS: Aspirin Chewable 81 MG TAB PO SCH (13:38)
[2023-10-05] MEDS: Atorvastatin Calcium 40 MG TAB PO SCH (13:38)
[2023-10-05] MEDS: Escitalopram Oxalate 10 mg Tablet PO SCH (13:38)
[2023-10-05] MEDS: Sodium Bicarbonate Tab 325 MG TAB PO SCH (13:39)
== END 2023-10-05 15:23 | disposition home or self-care (01) | DRG 308 ==
LOC: CSHERS 16:59 → CSHICU 17:55 → CSHTELE 10-04 16:01
PROVIDERS: ADMIT Hospitalist; ATTEND Hospitalist
DX: R00.1 Bradycardia, unspecified (principal); G93.41 Metabolic encephalopathy; R57.1 Hypovolemic shock; I13.0 Hypertensive heart and chronic kidney disease with heart failure and stage 1 through stage 4 chronic kidney disease, or unspecified chronic kidney disease; N17.9 Acute kidney failure, unspecified; E87.29 Other acidosis; N18.4 Chronic kidney disease, stage 4 (severe); I50.32 Chronic diastolic (congestive) heart failure; I95.2 Hypotension due to drugs; T46.1X5A Adverse effect of calcium-channel blockers, initial encounter; Z91.040 Latex allergy status; Z88.1 Allergy status to other antibiotic agents; Z88.8 Allergy status to other drugs, medicaments and biological substances; Z79.899 Other long term (current) drug therapy; Z79.84 Long term (current) use of oral hypoglycemic drugs; K21.9 Gastro-esophageal reflux disease without esophagitis; E03.9 Hypothyroidism, unspecified; Z98.890 Other specified postprocedural states; E11.22 Type 2 diabetes mellitus with diabetic chronic kidney disease; Z79.82 Long term (current) use of aspirin; Z95.5 Presence of coronary angioplasty implant and graft; Z90.710 Acquired absence of both cervix and uterus; Z83.3 Family history of diabetes mellitus; Z82.49 Family history of ischemic heart disease and other diseases of the circulatory system; E83.42 Hypomagnesemia; I25.118 Atherosclerotic heart disease of native coronary artery with other forms of angina pectoris; E78.2 Mixed hyperlipidemia; D63.1 Anemia in chronic kidney disease; M81.0 Age-related osteoporosis without current pathological fracture; E11.59 Type 2 diabetes mellitus with other circulatory complications; T44.7X5A Adverse effect of beta-adrenoreceptor antagonists, initial encounter
CPT/HCPCS: 36415; 71045; 80048; 81001; 85025; 86140; 94760; J1650; J3475; J7070

== ENCOUNTER 2023-10-20 11:34 | Inpatient (IN) | payer MEDICARE ==
[~2023-10-20 11:34] MED LIST changes: -Aspirin 325 MG TAB ONE; -Atropine Sulfate 0.4 mg/1 ml Vial ONE; -Fentanyl 100 MCG/2 ML VIAL ONE; -Heparin 10,000 UNITS/ 10 ML VIAL ONE; +Iopamidol 300 61% 100 ML VIAL FS ONE; -Lidocaine 1% (PF) 30 ML VIAL ONE; -Midazolam HCl 2 mg/2 ml Vial ONE; -PHENYLEPHRINE-NS 100 MCG/ML 10 ML SYRINGE ONE
[2023-10-20 12:49] LABS: #Basophils 0.1 10x3/uL (0.0-0.2); #Monocytes 1.1 10x3/uL (0.0-1.1); #Neutrophils 15.2 10x3/uL (1.5-8.4); %Basophils 0.4 % (0.0-2.0); %Eosinophils 0.2 % (0.0-6.0); %Lymphocytes 8.5 % (18.0-47.0); %Monocytes 6.1 % (0.0-10.0); %Neutrophils 84.4 % (40.0-75.0); Hematocrit 36.7 % (34.9-44.5); Hemoglobin 11.7 g/dL (12.0-15.5); Mean Corpuscular HGB CONC 31.9 g/dL (32.0-36.0); Mean Corpuscular Hemoglobin 26.5 pg (27.0-33.0); Mean Corpuscular Volume 83.2 fl (81.6-98.3); Mean Platelet Volume 9.7 fl (7.4-10.4); Platelet Count 485 10x3/uL (150-450); RBC Distribution Width 16.6 % (11.5-14.5); Red Blood Cell (RBC) Count 4.41 10x6/uL (3.90-5.03)
[2023-10-20 12:53] LABS: Bilirubin Neg (Negative); Blood, Urine Negative (Negative); Clarity Clear (Clear); Glucose, Urine (Dipstick) Normal (Negative); Ketone, Urine 5 mg/dL (Negative); Leukocyte Negative (Negative); Nitrite Negative (Negative); Protein, Urine (Dipstick) 30 mg/dl (Neg-Trace); Specific Gravity, Urine 1.005 (1.005-1.030); Urobilinogen Normal mg/dL (Less than 2)
[2023-10-20 13:11] LABS: Troponin I 0.017 ng/mL (< 0.028)
[2023-10-20 13:34] LABS: Bacteria/HPF None Seen HPF (None Seen); CAUTI Indications for Culture Alt mental st,lethar; RBC/HPF 0-3 HPF (0-3); Squamous Epithelial 0-3 HPF (0-3); Urine Culture Reflex No No; WBC/HPF 0-3 HPF (0-3)
[2023-10-20 13:36] LABS: ALT (SGPT) 7 U/L (8-55); AST (SGOT) 12 U/L (5-34); Alkaline Phosphatase 95 U/L (40-110); Anion Gap 20 mmol/L (10-20); BUN (Urea Nitrogen) 9 mg/dL (9.8-20.1); Bilirubin, Total 0.5 mg/dL (0.2-1.2); Calc. Creatinine Clearance 0 mL/min (70-130); Calcium 8.9 mg/dL (7.8-10.44); Carbon Dioxide 16 mmol/L (23-31); Chloride 105 mmol/L (98-107); Estimated GFR 48; Globulin 3.3 g/dL (2.4-3.5); Glucose 139 mg/dL (83-110); Potassium 3.7 mmol/L (3.5-5.1); Protein, Total 7.3 g/dL (5.8-8.1); Sodium 137 mmol/L (136-145)
[2023-10-20] MEDS ORDERED: Cefepime 2 GM VIAL ONE (13:53)
[2023-10-20] MEDS ORDERED: Vancomycin 1.5 GRAM/300 ML BAG 1.5 GM in Premix 1 BAG IVPB SCH (14:00)
[2023-10-20 15:01] LABS: SARS-CoV-2 NAA Rapid Test Not Detected (NotDetected)
[2023-10-20] MEDS ORDERED: Ondansetron PF 4 MG/2 ML Vial IVP PRN (15:17)
[2023-10-20] MEDS ORDERED: cefTRIAXone\\ROCEPHIN 1 GM in Sodium Chloride 0.9% 100 ML IVPB SCH (15:30)
[2023-10-20] MEDS ORDERED: Dextrose 5% in Water 1,000 ML IV PRN (15:49)
[2023-10-20] MEDS ORDERED: Glucagon 1 MG/ML KIT IM PRN (15:49)
[2023-10-20] MEDS ORDERED: Dextrose 50% Abboject 50 ML SYRINGE SLOW IVP PRN (15:49)
[2023-10-20 16:13] LABS: Lactic Acid 1.5 mmol/L (0.5-2.2)
[2023-10-20] MEDS ORDERED: Amlodipine 5 MG TAB PO SCH (18:00)
[2023-10-20] MEDS ORDERED: Piperacillin/Tazobactam 3.375 GM in Sodium Chloride 0.9% 100 ML IVPB SCH (18:00)
[2023-10-20] MEDS: Sodium Chloride 0.9% 1,000 ML IV SCH (18:11)
[2023-10-20 18:40] VITALS: BMI 30.7
[2023-10-20] MEDS: Piperacillin/Tazobactam 3.375 GM in Sodium Chloride 0.9% 100 ML IVPB SCH (21:10)
[2023-10-20] MEDS: Acetaminophen 325 MG TAB PO PRN (21:19)
[2023-10-21] MEDS: Sodium Chloride 0.9% 1,000 ML IV SCH ×2 (05:06→18:05)
[2023-10-21] MEDS: Levothyroxine Sodium 50 MCG TAB PO SCH (05:06)
[2023-10-21] MEDS: Piperacillin/Tazobactam 3.375 GM in Sodium Chloride 0.9% 100 ML IVPB SCH ×3 (05:06→22:20)
[2023-10-21 05:08] LABS: #Basophils 0.1 10x3/uL (0.0-0.2); #Eosinphils 0.3 10x3/uL (0.0-0.5); #Neutrophils 7.6 10x3/uL (1.5-8.4); %Eosinophils 3.1 % (0.0-6.0); %Monocytes 9.3 % (0.0-10.0); %Neutrophils 68.3 % (40.0-75.0); Hematocrit 30.9 % (34.9-44.5); Hemoglobin 10.2 g/dL (12.0-15.5); Mean Corpuscular Hemoglobin 27.2 pg (27.0-33.0); Mean Corpuscular Volume 82.4 fl (81.6-98.3); Mean Platelet Volume 9.4 fl (7.4-10.4); Platelet Count 407 10x3/uL (150-450); RBC Distribution Width 16.7 % (11.5-14.5); Red Blood Cell (RBC) Count 3.75 10x6/uL (3.90-5.03); White Blood Cell (WBC) Count 11.1 10x3/uL (3.5-10.5)
[2023-10-21 05:31] LABS: Anion Gap 16 mmol/L (10-20); BUN (Urea Nitrogen) 8 mg/dL (9.8-20.1); Calc. Creatinine Clearance 45 mL/min (70-130); Calcium 8.1 mg/dL (7.8-10.44); Carbon Dioxide 18 mmol/L (23-31); Chloride 109 mmol/L (98-107); Estimated GFR 49; Glucose 116 mg/dL (83-110); Potassium 3.2 mmol/L (3.5-5.1); Sodium 140 mmol/L (136-145)
[2023-10-21] MEDS ORDERED: Amlodipine 5 MG TAB PO SCH ×2 (09:00→12:00)
[2023-10-21] MEDS ORDERED: Potassium Bicarbonate/Cit Ac 20 MEQ TAB PO SCH (09:00)
[2023-10-21] MEDS: Atorvastatin Calcium 40 MG TAB PO SCH (09:10)
[2023-10-21] MEDS: Aspirin 81 mg Enteric Coated Tablet PO SCH (09:10)
[2023-10-21] MEDS: HumaLOG 300 UNITS/3 ML VIAL SC PRN (17:00)
[2023-10-21] MEDS ORDERED: hydrALAZINE 25 MG TAB PO SCH (23:00)
[2023-10-22] MEDS: Acetaminophen 325 MG TAB PO PRN (02:56)
[2023-10-22] MEDS: Piperacillin/Tazobactam 3.375 GM in Sodium Chloride 0.9% 100 ML IVPB SCH ×3 (06:08→21:59)
[2023-10-22] MEDS: Levothyroxine Sodium 50 MCG TAB PO SCH (06:08)
[2023-10-22] MEDS: Sodium Chloride 0.9% 1,000 ML IV SCH (09:00)
[2023-10-22] MEDS: Amlodipine 10 MG TAB PO SCH (09:00)
[2023-10-22] MEDS: Atorvastatin Calcium 40 MG TAB PO SCH (09:00)
[2023-10-22] MEDS: Aspirin 81 mg Enteric Coated Tablet PO SCH (09:00)
[2023-10-22 10:05] LABS: #Basophils 0.1 10x3/uL (0.0-0.2); #Eosinphils 0.4 10x3/uL (0.0-0.5); #Monocytes 0.9 10x3/uL (0.0-1.1); #Neutrophils 7.1 10x3/uL (1.5-8.4); %Lymphocytes 19.5 % (18.0-47.0); %Monocytes 8.7 % (0.0-10.0); %Neutrophils 66.5 % (40.0-75.0); Hematocrit 33.7 % (34.9-44.5); Mean Corpuscular HGB CONC 32.6 g/dL (32.0-36.0); Mean Corpuscular Volume 82.6 fl (81.6-98.3); Mean Platelet Volume 9.5 fl (7.4-10.4); Platelet Count 424 10x3/uL (150-450); RBC Distribution Width 16.8 % (11.5-14.5); Red Blood Cell (RBC) Count 4.08 10x6/uL (3.90-5.03); White Blood Cell (WBC) Count 10.6 10x3/uL (3.5-10.5)
[2023-10-22 10:31] LABS: Anion Gap 16 mmol/L (10-20); BUN (Urea Nitrogen) 7 mg/dL (9.8-20.1); Calc. Creatinine Clearance 48 mL/min (70-130); Calcium 8.1 mg/dL (7.8-10.44); Carbon Dioxide 19 mmol/L (23-31); Chloride 106 mmol/L (98-107); Estimated GFR 53; Glucose 137 mg/dL (83-110); Sodium 138 mmol/L (136-145)
[2023-10-22] MEDS ORDERED: Potassium Bicarbonate/Cit Ac 20 MEQ TAB PO SCH (12:15)
[2023-10-23] MEDS ORDERED: cloNIDine 0.1 MG TAB PO SCH (01:15)
[2023-10-23 05:44] LABS: #Basophils 0.1 10x3/uL (0.0-0.2); #Eosinphils 0.4 10x3/uL (0.0-0.5); #Monocytes 0.9 10x3/uL (0.0-1.1); %Eosinophils 3.7 % (0.0-6.0); %Lymphocytes 19.3 % (18.0-47.0); %Monocytes 8.4 % (0.0-10.0); %Neutrophils 67.4 % (40.0-75.0); Hematocrit 31.7 % (34.9-44.5); Hemoglobin 10.4 g/dL (12.0-15.5); Mean Corpuscular HGB CONC 32.8 g/dL (32.0-36.0); Mean Corpuscular Volume 82.3 fl (81.6-98.3); Mean Platelet Volume 9.7 fl (7.4-10.4); Platelet Count 463 10x3/uL (150-450); Red Blood Cell (RBC) Count 3.85 10x6/uL (3.90-5.03); White Blood Cell (WBC) Count 10.3 10x3/uL (3.5-10.5)
[2023-10-23] MEDS: Levothyroxine Sodium 50 MCG TAB PO SCH (05:49)
[2023-10-23] MEDS: Piperacillin/Tazobactam 3.375 GM in Sodium Chloride 0.9% 100 ML IVPB SCH ×3 (05:49→21:08)
[2023-10-23 05:54] LABS: Anion Gap 17 mmol/L (10-20); BUN (Urea Nitrogen) 9 mg/dL (9.8-20.1); Calc. Creatinine Clearance 50 mL/min (70-130); Carbon Dioxide 18 mmol/L (23-31); Chloride 109 mmol/L (98-107); Estimated GFR 56; Glucose 132 mg/dL (83-110); Potassium 3.1 mmol/L (3.5-5.1); Sodium 141 mmol/L (136-145)
[2023-10-23] MEDS: Amlodipine 10 MG TAB PO SCH (10:41)
[2023-10-23] MEDS: Atorvastatin Calcium 40 MG TAB PO SCH (10:41)
[2023-10-23] MEDS: Aspirin 81 mg Enteric Coated Tablet PO SCH (10:42)
[2023-10-23] MEDS: hydrALAZINE 20 MG/ML VIAL SLOW IVP PRN (16:25)
[2023-10-24] MEDS: hydrALAZINE 20 MG/ML VIAL SLOW IVP PRN (00:46)
[2023-10-24] MEDS: Acetaminophen 325 MG TAB PO PRN (00:46)
[2023-10-24 03:36] LABS: #Basophils 0.1 10x3/uL (0.0-0.2); #Eosinphils 0.3 10x3/uL (0.0-0.5); #Monocytes 1.1 10x3/uL (0.0-1.1); #Neutrophils 6.7 10x3/uL (1.5-8.4); %Basophils 1.3 % (0.0-2.0); %Eosinophils 2.9 % (0.0-6.0); %Lymphocytes 22.4 % (18.0-47.0); %Monocytes 9.9 % (0.0-10.0); %Neutrophils 63.1 % (40.0-75.0); Hematocrit 34.7 % (34.9-44.5); Mean Corpuscular HGB CONC 31.7 g/dL (32.0-36.0); Mean Corpuscular Hemoglobin 26.9 pg (27.0-33.0); Mean Corpuscular Volume 84.8 fl (81.6-98.3); Mean Platelet Volume 9.4 fl (7.4-10.4); Platelet Count 505 10x3/uL (150-450); Red Blood Cell (RBC) Count 4.09 10x6/uL (3.90-5.03); White Blood Cell (WBC) Count 10.6 10x3/uL (3.5-10.5)
[2023-10-24 03:37] LABS: Anion Gap 17 mmol/L (10-20); BUN (Urea Nitrogen) 9 mg/dL (9.8-20.1); Calc. Creatinine Clearance 48 mL/min (70-130); Calcium 8.5 mg/dL (7.8-10.44); Carbon Dioxide 16 mmol/L (23-31); Chloride 109 mmol/L (98-107); Estimated GFR 53; Glucose 127 mg/dL (83-110); Potassium 2.9 mmol/L (3.5-5.1); Sodium 139 mmol/L (136-145)
[2023-10-24] MEDS: Piperacillin/Tazobactam 3.375 GM in Sodium Chloride 0.9% 100 ML IVPB SCH (05:11)
[2023-10-24] MEDS: Levothyroxine Sodium 50 MCG TAB PO SCH (05:11)
[2023-10-24] MEDS: Aspirin 81 mg Enteric Coated Tablet PO SCH (07:55)
[2023-10-24] MEDS: Atorvastatin Calcium 40 MG TAB PO SCH (07:55)
[2023-10-24] MEDS: Amlodipine 10 MG TAB PO SCH (07:55)
[2023-10-24] MEDS ORDERED: Losartan 50 MG TAB PO SCH (11:15)
[2023-10-24] MEDS ORDERED: Potassium Chloride 20 MEQ TAB PO SCH (11:15)
[2023-10-24] MEDS ORDERED: cloNIDine 0.1 MG TAB PO SCH (11:15)
[2023-10-24] MEDS ORDERED: Potassium Chloride 20 MEQ in Premix 1 BAG IVPB SCH (13:00)
[2023-10-24 20:34] LABS: Potassium 3.9 mmol/L (3.5-5.1)
[2023-10-24] MEDS: HumaLOG 300 UNITS/3 ML VIAL SC PRN (22:29)
[2023-10-25 03:55] LABS: #Basophils 0.1 10x3/uL (0.0-0.2); #Eosinphils 0.4 10x3/uL (0.0-0.5); #Neutrophils 5.9 10x3/uL (1.5-8.4); %Basophils 0.9 % (0.0-2.0); %Eosinophils 4.3 % (0.0-6.0); %Lymphocytes 26.1 % (18.0-47.0); %Monocytes 9.7 % (0.0-10.0); %Neutrophils 58.7 % (40.0-75.0); Hematocrit 30.7 % (34.9-44.5); Hemoglobin 9.8 g/dL (12.0-15.5); Mean Corpuscular HGB CONC 31.9 g/dL (32.0-36.0); Mean Corpuscular Hemoglobin 27.5 pg (27.0-33.0); Mean Platelet Volume 9.7 fl (7.4-10.4); Platelet Count 492 10x3/uL (150-450); RBC Distribution Width 17.2 % (11.5-14.5); Red Blood Cell (RBC) Count 3.57 10x6/uL (3.90-5.03)
[2023-10-25 04:04] LABS: Anion Gap 14 mmol/L (10-20); BUN (Urea Nitrogen) 16 mg/dL (9.8-20.1); Calc. Creatinine Clearance 49 mL/min (70-130); Calcium 8.5 mg/dL (7.8-10.44); Carbon Dioxide 18 mmol/L (23-31); Chloride 108 mmol/L (98-107); Estimated GFR 55; Glucose 95 mg/dL (83-110); Potassium 3.7 mmol/L (3.5-5.1); Sodium 136 mmol/L (136-145)
[2023-10-25] MEDS: Levothyroxine Sodium 50 MCG TAB PO SCH (06:06)
[2023-10-25] MEDS: Acetaminophen 325 MG TAB PO PRN (06:14)
[2023-10-25] MEDS ORDERED: Isosorbide Mononitrate 30 MG ER.TAB PO SCH (09:00)
[2023-10-25] MEDS: Amlodipine 10 MG TAB PO SCH ×2 (10:44→10:47)
[2023-10-25] MEDS: Aspirin 81 mg Enteric Coated Tablet PO SCH (10:45)
[2023-10-25] MEDS: Losartan 50 MG TAB PO SCH ×2 (10:45→10:47)
[2023-10-25] MEDS: Atorvastatin Calcium 40 MG TAB PO SCH (10:45)
[2023-10-25 12:47] VITALS: BP 159/68; TEMP 98.2
[2023-10-25] MEDS: HumaLOG 300 UNITS/3 ML VIAL SC PRN (14:24)
== END 2023-10-25 16:16 | disposition home health service (06) | DRG 872 ==
LOC: CSHERS 11:34 → CSHTELE 14:20
PROVIDERS: ADMIT Internal Medicine; ATTEND Internal Medicine
PROC: 0T9B70Z Drainage of Bladder with Drainage Device, Via Natural or Artificial Opening (ICD-10-PCS; principal; 2023-10-20)
PROC: 3E03329 Introduction of Other Anti-infective into Peripheral Vein, Percutaneous Approach (ICD-10-PCS; 2023-10-20)
DX: A41.9 Sepsis, unspecified organism (principal); I13.0 Hypertensive heart and chronic kidney disease with heart failure and stage 1 through stage 4 chronic kidney disease, or unspecified chronic kidney disease; G93.49 Other encephalopathy; Z91.040 Latex allergy status; Z88.1 Allergy status to other antibiotic agents; Z91.048 Other nonmedicinal substance allergy status; Z79.899 Other long term (current) drug therapy; Z79.84 Long term (current) use of oral hypoglycemic drugs; N18.30 Chronic kidney disease, stage 3 unspecified; I50.9 Heart failure, unspecified; K21.9 Gastro-esophageal reflux disease without esophagitis; I25.10 Atherosclerotic heart disease of native coronary artery without angina pectoris; E03.9 Hypothyroidism, unspecified; Z79.82 Long term (current) use of aspirin; Z11.52 Encounter for screening for COVID-19; F03.90 Unspecified dementia, unspecified severity, without behavioral disturbance, psychotic disturbance, mood disturbance, and anxiety; E78.5 Hyperlipidemia, unspecified; E87.6 Hypokalemia; Z79.4 Long term (current) use of insulin; E11.22 Type 2 diabetes mellitus with diabetic chronic kidney disease
CPT/HCPCS: 36415; 36416; 51701; 70450; 71045; 74177; 80048; 80053; 81001; 83605; 84484; 85025; 87040; 87086; 93005; 96365; 96367; J0360; J0692; J1650; J1815; J2405; J2543; J3370; J3480; J3490; J7050; Q9967

== ENCOUNTER 2023-12-19 18:18 | Inpatient (IN) | payer MEDICAID, MEDICARE ==
[2023-12-19] MEDS ORDERED: Guaifenesin DM 100-10/5 ML UDCUP PO PRN (19:13)
[2023-12-19] MEDS ORDERED: Ondansetron PF 4 MG/2 ML Vial IVP PRN (19:13)
[2023-12-19] MEDS ORDERED: Calcium Carbonate 500 MG ChewTAB PO PRN (19:13)
[2023-12-19] MEDS ORDERED: Acetaminophen 325 MG TAB PO PRN (19:13)
[2023-12-19] MEDS ORDERED: Senokot S 8.6-50 MG TAB PO PRN (19:13)
[2023-12-19] MEDS ORDERED: HumaLOG 300 UNITS/3 ML VIAL SC PRN (19:23)
[2023-12-19] MEDS ORDERED: Glucagon 1 MG/ML KIT IM PRN (19:23)
[2023-12-19] MEDS ORDERED: Dextrose 5% in Water 1,000 ML IV PRN (19:23)
[2023-12-19] MEDS ORDERED: Dextrose 50% Abboject 50 ML SYRINGE SLOW IVP PRN (19:23)
[2023-12-19] MEDS ORDERED: Lactated Ringer's 500 ML IV SCH (19:30)
[2023-12-19 20:20] LABS: Anion Gap 13 mmol/L (10-20); BUN (Urea Nitrogen) 13 mg/dL (9.8-20.1); Calc. Creatinine Clearance 0 mL/min (70-130); Calcium 7.8 mg/dL (7.8-10.44); Carbon Dioxide 20 mmol/L (23-31); Chloride 106 mmol/L (98-107); Estimated GFR 58; Glucose 129 mg/dL (83-110); Magnesium 2.1 mg/dL (1.6-2.6); Potassium 3.8 mmol/L (3.5-5.1); Sodium 135 mmol/L (136-145)
[2023-12-19 20:24] LABS: Troponin I 0.044 ng/mL (< 0.028)
[2023-12-19 20:28] LABS: CRP (Inflammatory) 18.19 mg/dL (= or < 0.5)
[2023-12-19] MEDS ORDERED: Famotidine 20 MG TAB PO SCH (21:00)
[2023-12-19] MEDS: Atorvastatin Calcium 40 MG TAB PO SCH (21:24)
[2023-12-19] MEDS ORDERED: Piperacillin/Tazobactam 3.375 GM in Sodium Chloride 0.9% 100 ML IVPB SCH (21:45)
[2023-12-19 23:10] LABS: Lactic Acid 2.1 mmol/L (0.5-2.2)
[2023-12-20] MEDS ORDERED: Morphine 2 MG/ML VIAL SLOW IVP SCH (01:45)
[2023-12-20] MEDS ORDERED: Cefepime 2 GM in Sodium Chloride 0.9% 100 ML IVPB SCH (03:00)
[2023-12-20] MEDS: Piperacillin/Tazobactam 3.375 GM in Sodium Chloride 0.9% 100 ML IVPB SCH ×3 (03:30→23:30)
[2023-12-20 04:23] LABS: Legionella Urinary Ag Negative (Negative); Strep pneumo Urine Ag NEGATIVE (NEGATIVE)
[2023-12-20 04:37] LABS: #Basophils 0.1 10x3/uL (0.0-0.2); #Eosinphils 0.5 10x3/uL (0.0-0.5); #Monocytes 1.2 10x3/uL (0.0-1.1); #Neutrophils 9.7 10x3/uL (1.5-8.4); %Basophils 0.4 % (0.0-2.0); %Lymphocytes 7.3 % (18.0-47.0); %Monocytes 9.8 % (0.0-10.0); %Neutrophils 77.9 % (40.0-75.0); Hematocrit 31.8 % (34.9-44.5); Hemoglobin 10.6 g/dL (12.0-15.5); Mean Corpuscular HGB CONC 33.3 g/dL (32.0-36.0); Mean Corpuscular Hemoglobin 27.6 pg (27.0-33.0); Mean Corpuscular Volume 82.8 fl (81.6-98.3); Mean Platelet Volume 9.7 fl (7.4-10.4); Platelet Count 402 10x3/uL (150-450); RBC Distribution Width 15.8 % (11.5-14.5); Red Blood Cell (RBC) Count 3.84 10x6/uL (3.90-5.03); White Blood Cell (WBC) Count 12.4 10x3/uL (3.5-10.5)
[2023-12-20 04:50] LABS: Lactic Acid 2.1 mmol/L (0.5-2.2)
[2023-12-20 04:58] LABS: Anion Gap 13 mmol/L (10-20); BUN (Urea Nitrogen) 11 mg/dL (9.8-20.1); Calc. Creatinine Clearance 52 mL/min (70-130); Calcium 7.9 mg/dL (7.8-10.44); Carbon Dioxide 21 mmol/L (23-31); Chloride 107 mmol/L (98-107); Estimated GFR 66; Glucose 109 mg/dL (83-110); Magnesium 1.9 mg/dL (1.6-2.6); Potassium 3.9 mmol/L (3.5-5.1); Sodium 137 mmol/L (136-145)
[2023-12-20 05:10] LABS: Troponin I 0.027 ng/mL (< 0.028)
[2023-12-20] MEDS: Levothyroxine Sodium 25 MCG TAB PO SCH (05:34)
[2023-12-20] MEDS: Icosapent Ethyl 1 GM CAPSULE PO SCH ×2 (08:52→17:19)
[2023-12-20] MEDS: Aspirin 81 mg Enteric Coated Tablet PO SCH (08:55)
[2023-12-20] MEDS: Fluticasone Propionate Nasal Spray 16 gm Bottle NASAL SCH (08:55)
[2023-12-20] MEDS: Anastrozole 1 MG TAB PO SCH (08:55)
[2023-12-20] MEDS: Calcium Carbonate 600 MG + Vit D TAB PO SCH (08:58)
[2023-12-20] MEDS: Isosorbide Mononitrate 30 MG ER.TAB PO SCH (08:58)
[2023-12-20] MEDS: Pregabalin 50 MG CAP PO SCH ×2 (08:58→23:30)
[2023-12-20] MEDS: Cyanocobalamin (Vitamin B-12) 1,000 MCG TAB PO SCH (08:58)
[2023-12-20] MEDS: Famotidine 20 MG TAB PO SCH (08:59)
[2023-12-20] MEDS: Amlodipine 10 MG TAB PO SCH (08:59)
[2023-12-20] MEDS: Enoxaparin 40 MG (0.4 mL) SYRINGE SC SCH (09:00)
[2023-12-20] MEDS: Escitalopram Oxalate 10 mg Tablet PO SCH (09:00)
[2023-12-20] MEDS: Zinc Sulfate 220 MG CAP PO SCH (15:17)
[2023-12-20] MEDS: Vancomycin 1 GM in Sodium Chloride 0.9% 250 ML 250 ML IVPB SCH (16:18)
[2023-12-20] MEDS: Atorvastatin Calcium 40 MG TAB PO SCH (23:30)
[2023-12-21] MEDS: Piperacillin/Tazobactam 3.375 GM in Sodium Chloride 0.9% 100 ML IVPB SCH ×3 (06:01→16:00)
[2023-12-21] MEDS: Levothyroxine Sodium 25 MCG TAB PO SCH (06:04)
[2023-12-21] MEDS: Icosapent Ethyl 1 GM CAPSULE PO SCH ×2 (08:22→17:49)
[2023-12-21 08:23] LABS: #Basophils 0.1 10x3/uL (0.0-0.2); #Eosinphils 1.1 10x3/uL (0.0-0.5); #Monocytes 1.1 10x3/uL (0.0-1.1); #Neutrophils 7.6 10x3/uL (1.5-8.4); %Basophils 0.6 % (0.0-2.0); %Eosinophils 9.4 % (0.0-6.0); %Lymphocytes 12.9 % (18.0-47.0); %Monocytes 9.4 % (0.0-10.0); %Neutrophils 67.4 % (40.0-75.0); Hematocrit 27.2 % (34.9-44.5); Hemoglobin 8.9 g/dL (12.0-15.5); Mean Corpuscular HGB CONC 32.7 g/dL (32.0-36.0); Mean Corpuscular Hemoglobin 27.1 pg (27.0-33.0); Mean Corpuscular Volume 82.7 fl (81.6-98.3); Mean Platelet Volume 9.3 fl (7.4-10.4); Platelet Count 394 10x3/uL (150-450); RBC Distribution Width 15.5 % (11.5-14.5); Red Blood Cell (RBC) Count 3.29 10x6/uL (3.90-5.03); White Blood Cell (WBC) Count 11.2 10x3/uL (3.5-10.5)
[2023-12-21] MEDS: Anastrozole 1 MG TAB PO SCH (08:40)
[2023-12-21] MEDS: Fluticasone Propionate Nasal Spray 16 gm Bottle NASAL SCH (08:42)
[2023-12-21] MEDS: Zinc Sulfate 220 MG CAP PO SCH (08:42)
[2023-12-21 09:02] LABS: Anion Gap 14 mmol/L (10-20); BUN (Urea Nitrogen) 8 mg/dL (9.8-20.1); Calc. Creatinine Clearance 50 mL/min (70-130); Calcium 7.6 mg/dL (7.8-10.44); Carbon Dioxide 19 mmol/L (23-31); Chloride 101 mmol/L (98-107); Estimated GFR 61; Glucose 183 mg/dL (83-110); Sodium 131 mmol/L (136-145)
[2023-12-21] MEDS: Amlodipine 10 MG TAB PO SCH (09:44)
[2023-12-21] MEDS: Famotidine 20 MG TAB PO SCH (09:44)
[2023-12-21] MEDS: Pregabalin 50 MG CAP PO SCH (09:44)
[2023-12-21] MEDS: Calcium Carbonate 600 MG + Vit D TAB PO SCH (09:45)
[2023-12-21] MEDS: Aspirin 81 mg Enteric Coated Tablet PO SCH (09:45)
[2023-12-21] MEDS: Escitalopram Oxalate 10 mg Tablet PO SCH (09:45)
[2023-12-21] MEDS: Isosorbide Mononitrate 30 MG ER.TAB PO SCH (09:45)
[2023-12-21] MEDS: Cyanocobalamin (Vitamin B-12) 1,000 MCG TAB PO SCH (09:47)
[2023-12-21] MEDS: Enoxaparin 40 MG (0.4 mL) SYRINGE SC SCH (09:48)
[2023-12-21 15:27] LABS: Vancomycin, Trough 13.7 ug/mL
[2023-12-21] MEDS: Vancomycin 1 GM in Sodium Chloride 0.9% 250 ML 250 ML IVPB SCH (16:00)
[2023-12-21] MEDS ORDERED: Potassium Chloride 20 MEQ TAB PO SCH (18:45)
[2023-12-21] MEDS: Nystatin Cream 15 GM TUBE TOP SCH (20:57)
[2023-12-22] MEDS: Piperacillin/Tazobactam 3.375 GM in Sodium Chloride 0.9% 100 ML IVPB SCH ×4 (00:22→23:42)
[2023-12-22] MEDS: Atorvastatin Calcium 40 MG TAB PO SCH ×2 (00:22→21:46)
[2023-12-22] MEDS: Pregabalin 50 MG CAP PO SCH ×3 (00:22→21:46)
[2023-12-22 05:51] LABS: Anion Gap 13 mmol/L (10-20); BUN (Urea Nitrogen) 8 mg/dL (9.8-20.1); Calc. Creatinine Clearance 56 mL/min (70-130); Carbon Dioxide 22 mmol/L (23-31); Chloride 105 mmol/L (98-107); Estimated GFR 72; Glucose 114 mg/dL (83-110); Potassium 3.4 mmol/L (3.5-5.1); Sodium 137 mmol/L (136-145)
[2023-12-22] MEDS: Levothyroxine Sodium 25 MCG TAB PO SCH (06:29)
[2023-12-22] MEDS: Nystatin Cream 15 GM TUBE TOP SCH ×2 (08:29→21:46)
[2023-12-22] MEDS: Anastrozole 1 MG TAB PO SCH (08:30)
[2023-12-22] MEDS: Icosapent Ethyl 1 GM CAPSULE PO SCH ×2 (08:30→17:15)
[2023-12-22] MEDS: Fluticasone Propionate Nasal Spray 16 gm Bottle NASAL SCH (08:31)
[2023-12-22] MEDS: Enoxaparin 40 MG (0.4 mL) SYRINGE SC SCH (08:33)
[2023-12-22] MEDS: Calcium Carbonate 600 MG + Vit D TAB PO SCH (08:34)
[2023-12-22] MEDS: Escitalopram Oxalate 10 mg Tablet PO SCH (08:34)
[2023-12-22] MEDS: Famotidine 20 MG TAB PO SCH (08:34)
[2023-12-22] MEDS: Aspirin 81 mg Enteric Coated Tablet PO SCH (08:35)
[2023-12-22] MEDS: Cyanocobalamin (Vitamin B-12) 1,000 MCG TAB PO SCH (08:35)
[2023-12-22] MEDS: Isosorbide Mononitrate 30 MG ER.TAB PO SCH (08:35)
[2023-12-22] MEDS: Amlodipine 10 MG TAB PO SCH (08:35)
[2023-12-22] MEDS: Zinc Sulfate 220 MG CAP PO SCH (08:36)
[2023-12-22] MEDS: Saccharomyces boulardii 250 MG CAP PO SCH ×2 (10:14→22:05)
[2023-12-22] MEDS ORDERED: Vancomycin HCl 750 MG in Sodium Chloride 0.9% 250 ML 250 ML IVPB SCH (16:00)
[2023-12-23] MEDS ORDERED: Piperacillin/Tazobactam 3.375 GM in Sodium Chloride 0.9% 100 ML IVPB SCH (04:00)
[2023-12-23] MEDS: Levothyroxine Sodium 25 MCG TAB PO SCH (08:00)
[2023-12-23] MEDS: Aspirin 81 mg Enteric Coated Tablet PO SCH (09:32)
[2023-12-23] MEDS: Enoxaparin 40 MG (0.4 mL) SYRINGE SC SCH (09:32)
[2023-12-23] MEDS: Cyanocobalamin (Vitamin B-12) 1,000 MCG TAB PO SCH (09:33)
[2023-12-23] MEDS: Famotidine 20 MG TAB PO SCH (09:33)
[2023-12-23] MEDS: Isosorbide Mononitrate 30 MG ER.TAB PO SCH (09:33)
[2023-12-23] MEDS: Anastrozole 1 MG TAB PO SCH (09:33)
[2023-12-23] MEDS: Zinc Sulfate 220 MG CAP PO SCH (09:33)
[2023-12-23] MEDS: Pregabalin 50 MG CAP PO SCH (09:33)
[2023-12-23] MEDS: Calcium Carbonate 600 MG + Vit D TAB PO SCH (09:33)
[2023-12-23] MEDS: Saccharomyces boulardii 250 MG CAP PO SCH (09:33)
[2023-12-23] MEDS: Escitalopram Oxalate 10 mg Tablet PO SCH (09:34)
[2023-12-23] MEDS: Amlodipine 10 MG TAB PO SCH (09:34)
[2023-12-23] MEDS: Fluticasone Propionate Nasal Spray 16 gm Bottle NASAL SCH (12:01)
[2023-12-23] MEDS: Nystatin Cream 15 GM TUBE TOP SCH (12:02)
[2023-12-23] MEDS: Icosapent Ethyl 1 GM CAPSULE PO SCH ×2 (13:12→16:23)
[2023-12-23 13:23] VITALS: TEMP 98.1
[2023-12-23 14:57] VITALS: BP 152/82
[2023-12-23] MEDS ORDERED: Cefdinir 300 MG CAP PO SCH (21:00)
== END 2023-12-23 16:40 | disposition home health service (06) | DRG 871 ==
LOC: CSHTELE 18:18
PROVIDERS: ADMIT Internal Medicine; ATTEND Internal Medicine
DX: A41.89 Other specified sepsis (principal); G93.41 Metabolic encephalopathy; U07.1 COVID-19; I50.32 Chronic diastolic (congestive) heart failure; I13.0 Hypertensive heart and chronic kidney disease with heart failure and stage 1 through stage 4 chronic kidney disease, or unspecified chronic kidney disease; R65.20 Severe sepsis without septic shock; F03.90 Unspecified dementia, unspecified severity, without behavioral disturbance, psychotic disturbance, mood disturbance, and anxiety; E78.5 Hyperlipidemia, unspecified; I25.10 Atherosclerotic heart disease of native coronary artery without angina pectoris; E11.22 Type 2 diabetes mellitus with diabetic chronic kidney disease; F32.A Depression, unspecified; E86.0 Dehydration; N18.9 Chronic kidney disease, unspecified; E87.6 Hypokalemia; E83.42 Hypomagnesemia; I77.9 Disorder of arteries and arterioles, unspecified; E03.9 Hypothyroidism, unspecified; Z95.5 Presence of coronary angioplasty implant and graft; Z88.1 Allergy status to other antibiotic agents; Z91.040 Latex allergy status; Z88.8 Allergy status to other drugs, medicaments and biological substances; Z79.82 Long term (current) use of aspirin; Z79.899 Other long term (current) drug therapy; Z79.84 Long term (current) use of oral hypoglycemic drugs; Z98.890 Other specified postprocedural states; Z90.710 Acquired absence of both cervix and uterus
CPT/HCPCS: 36415; 36416; 71045; 71250; 80048; 80202; 82010; 82550; 83605; 83735; 84145; 84443; 84484; 85025; 86140; 87449; 87899; 93306; 94760; 94762; J1650; J2272; J2543; J3370; J3490; J7050

== ENCOUNTER 2024-08-28 16:19 | Emergency (ER) | payer MEDICARE ==
[2024-08-28 17:13] LABS: Bilirubin Neg (Negative); Blood, Urine 50 (Negative); Clarity Cloudy (Clear); Glucose, Urine (Dipstick) Normal (Negative); Ketone, Urine Negative (Negative); Leukocyte 500 (Negative); Nitrite Positive (Negative); Protein, Urine (Dipstick) 100 mg/dl (Neg-Trace); Specific Gravity, Urine 1.015 (1.005-1.030); Urobilinogen Normal mg/dL (Less than 2)
[2024-08-28 17:21] LABS: Bacteria/HPF 4+ HPF (None Seen); CAUTI Indications for Culture Alt mental st,lethar; Squamous Epithelial 0-3 HPF (0-3); Urine Culture Reflex Yes Yes; WBC/HPF Greater Than 50 HPF (0-3)
[2024-08-28] MEDS ORDERED: cefTRIAXone (ROCEPHIN) 1 GM VIAL ONE (17:42)
[2024-08-28 18:24] LABS: ALT (SGPT) 16 U/L (8-55); AST (SGOT) 23 U/L (5-34); Albumin 3.7 g/dL (3.4-4.8); Alkaline Phosphatase 71 U/L (40-110); Anion Gap 17 mmol/L (10-20); BUN (Urea Nitrogen) 20 mg/dL (9.8-20.1); Bilirubin, Total 0.3 mg/dL (0.2-1.2); Calc. Creatinine Clearance 0 mL/min (70-130); Calcium 9.2 mg/dL (7.8-10.44); Carbon Dioxide 23 mmol/L (23-31); Chloride 105 mmol/L (98-107); Estimated GFR 40; Globulin 2.8 g/dL (2.4-3.5); Glucose 105 mg/dL (83-110); Potassium 4.6 mmol/L (3.5-5.1); Protein, Total 6.5 g/dL (5.8-8.1); Sodium 140 mmol/L (136-145)
[2024-08-28 18:30] LABS: Troponin I Less than 0.010 ng/mL (< 0.028)
[2024-08-28 19:06] LABS: #Basophils 0.08 10x3/uL (0.0-0.2); #Eosinophils 0.23 10x3/uL (0.0-0.5); #Monocytes 0.84 10x3/uL (0.0-1.1); #Neutrophils 5.25 10x3/uL (1.5-8.4); %Basophils 0.9 % (0.0-2.0); %Eosinophils 2.7 % (0.0-6.0); %Lymphocytes 23.9 % (18.0-47.0); %Neutrophils 62.3 % (40.0-75.0); Hematocrit 33.8 % (34.9-44.5); Hemoglobin 10.4 g/dL (12.0-15.5); Mean Corpuscular HGB CONC 30.8 g/dL (32.0-36.0); Mean Corpuscular Hemoglobin 27.9 pg (27.0-33.0); Mean Corpuscular Volume 90.6 fL (81.6-98.3); Mean Platelet Volume 10.2 fL (7.4-10.4); Platelet Count 334 10x3/uL (150-450); Red Blood Cell (RBC) Count 3.73 10x6/uL (3.90-5.03); White Blood Cell (WBC) Count 8.4 10x3/uL (3.5-10.5)
[2024-08-28 20:06] LABS: Anisocytosis SLIGHT = 6-15 cells (100X) (0-5/hpf)
[2024-08-28 20:07] LABS: Large Platelets SLIGHT (None Seen); Platelet Adequacy Comment Appears Adequate
== END 2024-08-28 21:10 | disposition home or self-care (01) ==
LOC: CSHERS 16:19
DX: N39.0 Urinary tract infection, site not specified (principal); R41.82 Altered mental status, unspecified; I13.0 Hypertensive heart and chronic kidney disease with heart failure and stage 1 through stage 4 chronic kidney disease, or unspecified chronic kidney disease; E11.22 Type 2 diabetes mellitus with diabetic chronic kidney disease; N18.30 Chronic kidney disease, stage 3 unspecified; I50.9 Heart failure, unspecified
CPT/HCPCS: 80053; 81001; 83605; 84484; 85025; 87040; 87077; 87086; 87186; 93005; 96374; 99285; J0696; 36415

== ENCOUNTER 2024-11-01 11:36 | Inpatient (IN) | payer MEDICARE ==
[2024-11-01 12:59] LABS: #Basophils 0.04 10x3/uL (0.0-0.2); #Eosinophils 0.05 10x3/uL (0.0-0.5); #Monocytes 0.71 10x3/uL (0.0-1.1); #Neutrophils 8.51 10x3/uL (1.5-8.4); %Basophils 0.4 % (0.0-2.0); %Eosinophils 0.5 % (0.0-6.0); %Lymphocytes 14.9 % (18.0-47.0); %Monocytes 6.5 % (0.0-10.0); %Neutrophils 77.4 % (40.0-75.0); Hematocrit 36.9 % (34.9-44.5); Hemoglobin 12.4 g/dL (12.0-15.5); Mean Corpuscular HGB CONC 33.6 g/dL (32.0-36.0); Mean Corpuscular Hemoglobin 30.5 pg (27.0-33.0); Mean Corpuscular Volume 90.9 fL (81.6-98.3); Mean Platelet Volume 9.3 fL (7.4-10.4); Platelet Count 391 10x3/uL (150-450); RBC Distribution Width 16.9 % (11.5-14.5); Red Blood Cell (RBC) Count 4.06 10x6/uL (3.90-5.03)
[2024-11-01 13:17] LABS: ALT (SGPT) 14 U/L (8-55); AST (SGOT) 16 U/L (5-34); Albumin 3.8 g/dL (3.4-4.8); Alkaline Phosphatase 72 U/L (40-110); Anion Gap 16 mmol/L (10-20); BUN (Urea Nitrogen) 9 mg/dL (9.8-20.1); Bilirubin, Total 0.4 mg/dL (0.2-1.2); Calc. Creatinine Clearance 0 mL/min (70-130); Calcium 8.7 mg/dL (7.8-10.44); Carbon Dioxide 24 mmol/L (23-31); Chloride 102 mmol/L (98-107); Estimated GFR 67; Globulin 2.7 g/dL (2.4-3.5); Glucose 142 mg/dL (83-110); Lipase 23 U/L (8-78); Potassium 3.3 mmol/L (3.5-5.1); Protein, Total 6.5 g/dL (5.8-8.1); Sodium 139 mmol/L (136-145)
[2024-11-01 13:18] LABS: Troponin I 0.041 ng/mL (< 0.028)
[2024-11-01] MEDS ORDERED: Iopamidol 370 76% 100 ML VIAL ONE (14:00)
[2024-11-01] MEDS ORDERED: Nitroglycerin 2% Ointment 1 INCH/1 GM Packet ONE (14:52)
[2024-11-01] MEDS ORDERED: Metoprolol Tartrate 5 MG (5 mL) VIAL ONE (16:00)
[2024-11-01 18:21] LABS: Troponin I 0.035 ng/mL (< 0.028)
[2024-11-01 18:39] VITALS: BMI 27.5
[2024-11-01] MEDS ORDERED: Dextrose 5% in Water 1,000 ML IV PRN (19:22)
[2024-11-01] MEDS ORDERED: Dextrose 50% Abboject 50 ML SYRINGE SLOW IVP PRN (19:22)
[2024-11-01] MEDS ORDERED: Glucagon 1 MG/ML KIT IM PRN (19:22)
[2024-11-01] MEDS ORDERED: Senokot S 8.6-50 MG TAB PO PRN (19:22)
[2024-11-01] MEDS ORDERED: Guaifenesin DM 100-10/5 ML UDCUP PO PRN (19:22)
[2024-11-01] MEDS ORDERED: Calcium Carbonate 500 MG ChewTAB PO PRN (19:22)
[2024-11-01] MEDS ORDERED: Ondansetron PF 4 MG/2 ML Vial IVP PRN (19:22)
[2024-11-01] MEDS ORDERED: hydrALAZINE 20 MG/ML VIAL SLOW IVP PRN (19:26)
[2024-11-01] MEDS: hydrALAZINE 20 MG/ML VIAL SLOW IVP SCH (19:40)
[2024-11-01 19:47] LABS: Troponin I 0.039 ng/mL (< 0.028)
[2024-11-01] MEDS: cefTRIAXone\\ROCEPHIN 2 GM in Sodium Chloride 0.9% 100 ML IVPB SCH (19:59)
[2024-11-01 20:00] LABS: Magnesium 1.3 mg/dL (1.6-2.6)
[2024-11-01] MEDS: Potassium Chloride 20 MEQ TAB PO SCH (20:03)
[2024-11-01] MEDS: Lactated Ringer's 250 ML IV SCH (21:56)
[2024-11-01] MEDS: metroNIDAZOLE 500 MG in Premix 1 BAG IVPB SCH (21:59)
[2024-11-01] MEDS: Amlodipine 10 MG TAB PO SCH (22:00)
[2024-11-01] MEDS: Atorvastatin Calcium 40 MG TAB PO SCH (22:00)
[2024-11-01] MEDS: Icosapent Ethyl 1 GM CAPSULE PO SCH (22:01)
[2024-11-01] MEDS: Lubiprostone 8 MCG CAP PO SCH (22:02)
[2024-11-01] MEDS: Pregabalin 25 MG CAP PO SCH (22:06)
[2024-11-01] MEDS: Magnesium 2 GM/50 ML(in water) 2 GM in Premix 1 BAG IVPB SCH (23:27)
[2024-11-02 00:16] LABS: Bilirubin Neg (Negative); Blood, Urine Negative (Negative); Clarity Clear (Clear); Glucose, Urine (Dipstick) Normal (Negative); Ketone, Urine Negative (Negative); Leukocyte 100 (Negative); Nitrite Negative (Negative); Protein, Urine (Dipstick) 30 mg/dl (Neg-Trace); Urobilinogen Normal mg/dL (Less than 2)
[2024-11-02 00:26] LABS: Bacteria/HPF 2+ HPF (None Seen); RBC/HPF 0-3 HPF (0-3); Squamous Epithelial None Seen HPF (0-3)
[2024-11-02 01:10] LABS: Influenza A by NAA Not Detected (NotDetected); Influenza B by NAA Not Detected (NotDetected); RSV by NAA Not Detected (NotDetected); SARS-CoV-2 NAA Rapid Test Not Detected (NotDetected)
[2024-11-02 04:25] LABS: #Basophils 0.07 10x3/uL (0.0-0.2); #Eosinophils 0.35 10x3/uL (0.0-0.5); #Monocytes 1.35 10x3/uL (0.0-1.1); #Neutrophils 11.42 10x3/uL (1.5-8.4); %Basophils 0.5 % (0.0-2.0); %Eosinophils 2.3 % (0.0-6.0); %Lymphocytes 11.3 % (18.0-47.0); %Neutrophils 76.5 % (40.0-75.0); Anion Gap 17 mmol/L (10-20); BUN (Urea Nitrogen) 10 mg/dL (9.8-20.1); Calc. Creatinine Clearance 53 mL/min (70-130); Calcium 9.4 mg/dL (7.8-10.44); Carbon Dioxide 23 mmol/L (23-31); Chloride 101 mmol/L (98-107); Estimated GFR 70; Glucose 124 mg/dL (83-110); Hematocrit 37.6 % (34.9-44.5); Hemoglobin 12.3 g/dL (12.0-15.5); Magnesium 2.4 mg/dL (1.6-2.6); Mean Corpuscular HGB CONC 32.7 g/dL (32.0-36.0); Mean Corpuscular Hemoglobin 29.8 pg (27.0-33.0); Mean Platelet Volume 9.6 fL (7.4-10.4); Platelet Count 392 10x3/uL (150-450); Red Blood Cell (RBC) Count 4.13 10x6/uL (3.90-5.03); Sodium 138 mmol/L (136-145); White Blood Cell (WBC) Count 14.9 10x3/uL (3.5-10.5)
[2024-11-02] MEDS: Levothyroxine Sodium 50 MCG TAB PO SCH (05:40)
[2024-11-02] MEDS: FLU (Fluad Triv) TS24-25 (65UP)/MF59C/PF 45 MCG/0.5 ML Syringe IM ONE (08:28)
[2024-11-02] MEDS ORDERED: Amlodipine 10 MG TAB PO SCH (09:00)
[2024-11-02] MEDS: Enoxaparin 40 MG (0.4 mL) SYRINGE SC SCH (09:35)
[2024-11-02] MEDS: hydrALAZINE 25 MG TAB PO SCH (09:35)
[2024-11-02] MEDS: Pregabalin 75 MG CAP PO SCH (09:35)
[2024-11-02] MEDS: Isosorbide Mononitrate 30 MG ER.TAB PO SCH (09:35)
[2024-11-02] MEDS: Ferrous Sulfate 325 MG TAB PO SCH (09:36)
[2024-11-02] MEDS: Pantoprazole DR 40 MG TAB PO SCH (09:36)
[2024-11-02] MEDS: Anastrozole 1 MG TAB PO SCH (09:36)
[2024-11-02] MEDS: Losartan 50 MG TAB PO SCH (09:36)
[2024-11-02] MEDS: Magnesium Oxide 250 MG TAB PO SCH (09:36)
[2024-11-02] MEDS: Ascorbic Acid 500 mg Chewable Tablet PO SCH (09:36)
[2024-11-02] MEDS: Aspirin 81 mg Enteric Coated Tablet PO SCH (09:37)
[2024-11-02 13:06] LABS: Anion Gap 11 mmol/L (10-20); BUN (Urea Nitrogen) 11 mg/dL (9.8-20.1); Calc. Creatinine Clearance 41 mL/min (70-130); Calcium 8.7 mg/dL (7.8-10.44); Carbon Dioxide 24 mmol/L (23-31); Chloride 105 mmol/L (98-107); Estimated GFR 52; Glucose 160 mg/dL (83-110); Potassium 4.2 mmol/L (3.5-5.1); Sodium 136 mmol/L (136-145)
[2024-11-02 13:12] LABS: Hemoglobin A1c 5.8 % (4.0-6.0)
[2024-11-02] MEDS: Cyanocobalamin (Vitamin B-12) 1,000 MCG TAB PO SCH (14:54)
[2024-11-03] MEDS ORDERED: Sodium Chloride 0.9% 1,000 ML IV SCH (09:15)
[2024-11-03 10:18] LABS: #Basophils 0.07 10x3/uL (0.0-0.2); #Eosinophils 0.41 10x3/uL (0.0-0.5); %Basophils 0.5 % (0.0-2.0); %Eosinophils 3.1 % (0.0-6.0); %Lymphocytes 17.5 % (18.0-47.0); %Monocytes 9.9 % (0.0-10.0); %Neutrophils 68.6 % (40.0-75.0); Hematocrit 33.4 % (34.9-44.5); Hemoglobin 10.5 g/dL (12.0-15.5); Mean Corpuscular HGB CONC 31.4 g/dL (32.0-36.0); Mean Corpuscular Hemoglobin 29.4 pg (27.0-33.0); Mean Corpuscular Volume 93.6 fL (81.6-98.3); Mean Platelet Volume 9.2 fL (7.4-10.4); Platelet Count 334 10x3/uL (150-450); RBC Distribution Width 17.3 % (11.5-14.5); Red Blood Cell (RBC) Count 3.57 10x6/uL (3.90-5.03); White Blood Cell (WBC) Count 13.1 10x3/uL (3.5-10.5)
[2024-11-03 10:26] LABS: Anion Gap 14 mmol/L (10-20); BUN (Urea Nitrogen) 21 mg/dL (9.8-20.1); Calc. Creatinine Clearance 28 mL/min (70-130); Calcium 8.1 mg/dL (7.8-10.44); Carbon Dioxide 18 mmol/L (23-31); Chloride 99 mmol/L (98-107); Estimated GFR 32; Glucose 158 mg/dL (83-110); Potassium 4.1 mmol/L (3.5-5.1); Sodium 127 mmol/L (136-145)
[2024-11-03] MEDS: Sodium Chloride 0.9% 1,000 ML IV SCH (13:18)
[2024-11-03] MEDS: Insulin Lispro 100 UNIT/ML 10 ML VIAL SC PRN (13:19)
[2024-11-03] MEDS: Acetaminophen 325 MG TAB PO PRN (15:03)
[2024-11-04 04:17] LABS: Anion Gap 12 mmol/L (10-20); BUN (Urea Nitrogen) 23 mg/dL (9.8-20.1); Calc. Creatinine Clearance 34 mL/min (70-130); Calcium 8.4 mg/dL (7.8-10.44); Carbon Dioxide 19 mmol/L (23-31); Chloride 103 mmol/L (98-107); Estimated GFR 40; Glucose 124 mg/dL (83-110); Potassium 4.2 mmol/L (3.5-5.1); Sodium 130 mmol/L (136-145)
[2024-11-04 04:19] LABS: #Basophils 0.05 10x3/uL (0.0-0.2); #Eosinophils 0.35 10x3/uL (0.0-0.5); #Neutrophils 6.17 10x3/uL (1.5-8.4); %Basophils 0.5 % (0.0-2.0); %Eosinophils 3.4 % (0.0-6.0); %Monocytes 11.7 % (0.0-10.0); %Neutrophils 60.1 % (40.0-75.0); Hemoglobin 9.7 g/dL (12.0-15.5); Mean Corpuscular HGB CONC 32.3 g/dL (32.0-36.0); Mean Corpuscular Hemoglobin 29.8 pg (27.0-33.0); Mean Platelet Volume 8.9 fL (7.4-10.4); Platelet Count 329 10x3/uL (150-450); RBC Distribution Width 17.2 % (11.5-14.5); Red Blood Cell (RBC) Count 3.26 10x6/uL (3.90-5.03); White Blood Cell (WBC) Count 10.3 10x3/uL (3.5-10.5)
[2024-11-04] MEDS: Enoxaparin 30 MG (0.3 mL) SYRINGE SC SCH (09:15)
[2024-11-04] MEDS: Sodium Chloride 0.9% 1,000 ML IV SCH (13:38)
[2024-11-05 04:12] LABS: #Basophils 0.09 10x3/uL (0.0-0.2); #Eosinophils 0.22 10x3/uL (0.0-0.5); #Monocytes 1.12 10x3/uL (0.0-1.1); #Neutrophils 7.12 10x3/uL (1.5-8.4); %Basophils 0.8 % (0.0-2.0); %Eosinophils 2.1 % (0.0-6.0); %Lymphocytes 19.1 % (18.0-47.0); %Monocytes 10.6 % (0.0-10.0); %Neutrophils 67.1 % (40.0-75.0); Hematocrit 32.9 % (34.9-44.5); Hemoglobin 10.4 g/dL (12.0-15.5); Mean Corpuscular HGB CONC 31.6 g/dL (32.0-36.0); Mean Corpuscular Hemoglobin 30.1 pg (27.0-33.0); Mean Corpuscular Volume 95.4 fL (81.6-98.3); Mean Platelet Volume 9.5 fL (7.4-10.4); Platelet Count 367 10x3/uL (150-450); RBC Distribution Width 17.4 % (11.5-14.5); Red Blood Cell (RBC) Count 3.45 10x6/uL (3.90-5.03); White Blood Cell (WBC) Count 10.6 10x3/uL (3.5-10.5)
[2024-11-05 04:53] LABS: Anion Gap 14 mmol/L (10-20); BUN (Urea Nitrogen) 23 mg/dL (9.8-20.1); Calc. Creatinine Clearance 35 mL/min (70-130); Calcium 8.7 mg/dL (7.8-10.44); Carbon Dioxide 19 mmol/L (23-31); Chloride 108 mmol/L (98-107); Estimated GFR 43; Glucose 155 mg/dL (83-110); Potassium 4.4 mmol/L (3.5-5.1); Sodium 137 mmol/L (136-145)
[2024-11-06 04:39] LABS: Anion Gap 13 mmol/L (10-20); BUN (Urea Nitrogen) 14 mg/dL (9.8-20.1); Calc. Creatinine Clearance 47 mL/min (70-130); Calcium 8.8 mg/dL (7.8-10.44); Carbon Dioxide 19 mmol/L (23-31); Chloride 107 mmol/L (98-107); Estimated GFR 60; Glucose 129 mg/dL (83-110); Potassium 4.3 mmol/L (3.5-5.1); Sodium 135 mmol/L (136-145)
[2024-11-06 04:40] LABS: #Basophils 0.11 10x3/uL (0.0-0.2); #Monocytes 1.34 10x3/uL (0.0-1.1); #Neutrophils 8.26 10x3/uL (1.5-8.4); %Basophils 0.9 % (0.0-2.0); %Eosinophils 2.6 % (0.0-6.0); %Lymphocytes 14.2 % (18.0-47.0); %Monocytes 11.4 % (0.0-10.0); %Neutrophils 70.5 % (40.0-75.0); Hematocrit 32.4 % (34.9-44.5); Hemoglobin 10.4 g/dL (12.0-15.5); Mean Corpuscular HGB CONC 32.1 g/dL (32.0-36.0); Mean Corpuscular Hemoglobin 30.9 pg (27.0-33.0); Mean Corpuscular Volume 96.1 fL (81.6-98.3); Mean Platelet Volume 9.9 fL (7.4-10.4); Platelet Count 395 10x3/uL (150-450); RBC Distribution Width 17.5 % (11.5-14.5); Red Blood Cell (RBC) Count 3.37 10x6/uL (3.90-5.03); White Blood Cell (WBC) Count 11.7 10x3/uL (3.5-10.5)
[2024-11-06 13:01] VITALS: BMI 27.5
[2024-11-06] MEDS: metroNIDAZOLE 500 MG (100 mL) BAG ONE (17:14)
[2024-11-07 03:54] LABS: #Basophils 0.09 10x3/uL (0.0-0.2); #Monocytes 1.45 10x3/uL (0.0-1.1); #Neutrophils 7.23 10x3/uL (1.5-8.4); %Basophils 0.8 % (0.0-2.0); %Eosinophils 2.7 % (0.0-6.0); %Lymphocytes 18.3 % (18.0-47.0); %Neutrophils 64.8 % (40.0-75.0); Hematocrit 33.8 % (34.9-44.5); Hemoglobin 10.7 g/dL (12.0-15.5); Mean Corpuscular HGB CONC 31.7 g/dL (32.0-36.0); Mean Corpuscular Hemoglobin 29.6 pg (27.0-33.0); Mean Corpuscular Volume 93.6 fL (81.6-98.3); Mean Platelet Volume 9.4 fL (7.4-10.4); Platelet Count 392 10x3/uL (150-450); RBC Distribution Width 17.2 % (11.5-14.5); Red Blood Cell (RBC) Count 3.61 10x6/uL (3.90-5.03); White Blood Cell (WBC) Count 11.2 10x3/uL (3.5-10.5)
[2024-11-07 13:11] VITALS: BP 129/66; TEMP 98.2
== END 2024-11-07 12:50 | disposition home health service (06) | DRG 393 ==
LOC: CSHERS 11:36 → CSHTELE 17:28
PROVIDERS: ADMIT Internal Medicine; ATTEND Internal Medicine
DX: K63.89 Other specified diseases of intestine (principal); G93.41 Metabolic encephalopathy; I13.0 Hypertensive heart and chronic kidney disease with heart failure and stage 1 through stage 4 chronic kidney disease, or unspecified chronic kidney disease; F03.93 Unspecified dementia, unspecified severity, with mood disturbance; I50.42 Chronic combined systolic (congestive) and diastolic (congestive) heart failure; N39.0 Urinary tract infection, site not specified; N17.9 Acute kidney failure, unspecified; E87.1 Hypo-osmolality and hyponatremia; N18.30 Chronic kidney disease, stage 3 unspecified; E11.22 Type 2 diabetes mellitus with diabetic chronic kidney disease; I25.10 Atherosclerotic heart disease of native coronary artery without angina pectoris; K21.9 Gastro-esophageal reflux disease without esophagitis; E03.9 Hypothyroidism, unspecified; I16.0 Hypertensive urgency; E78.5 Hyperlipidemia, unspecified; E87.6 Hypokalemia; Z85.3 Personal history of malignant neoplasm of breast; Z90.13 Acquired absence of bilateral breasts and nipples; Z88.8 Allergy status to other drugs, medicaments and biological substances; Z88.1 Allergy status to other antibiotic agents; Z91.040 Latex allergy status
CPT/HCPCS: 0241U; 36415; 36416; 70450; 71045; 74177; 80048; 80053; 81001; 83036; 83605; 83690; 83735; 83880; 84443; 84484; 85025; 86140; 93005; 93306; 96374; J0360; J0696; J1650; J1815; J3475; J7030; J7120; Q9967

== ENCOUNTER 2024-11-09 19:30 | Inpatient (IN) | payer MEDICARE ==
[2024-11-09 21:11] LABS: Actual Bicarbonate (HCO3v) 23.6 mEq/L (22-28); Analyzer IN Cardio CS ER; Base Excess -0.4 mEq/L (-2 - +2); Calcium, Ionized (venous) 1.05 mmol/L (1.16-1.32); Chloride (VBG) 105 mmol/L (98-106); Critical Notified By: CP.PH; Hematocrit-VBG 37 % (36.0-47.0); Hemoglobin (Hb) 12.5 g/dL (11.7-16.1); Potassium (VBG) 3.83 mmol/L (3.70-5.30); Puncture Site Other Site; Sodium 136 mmol/L (133-146)
[2024-11-09 21:27] LABS: Bilirubin Neg (Negative); Blood, Urine Negative (Negative); Clarity Clear (Clear); Glucose, Urine (Dipstick) Normal (Negative); Ketone, Urine Negative (Negative); Leukocyte Negative (Negative); Nitrite Negative (Negative); Protein, Urine (Dipstick) 30 mg/dl (Neg-Trace); Urobilinogen Normal mg/dL (Less than 2)
[2024-11-09 21:28] LABS: #Basophils 0.08 10x3/uL (0.0-0.2); #Eosinophils 0.23 10x3/uL (0.0-0.5); #Monocytes 1.09 10x3/uL (0.0-1.1); #Neutrophils 7.25 10x3/uL (1.5-8.4); %Basophils 0.8 % (0.0-2.0); %Eosinophils 2.2 % (0.0-6.0); %Lymphocytes 17.4 % (18.0-47.0); %Monocytes 10.4 % (0.0-10.0); %Neutrophils 68.7 % (40.0-75.0); Hematocrit 34.9 % (34.9-44.5); Hemoglobin 11.2 g/dL (12.0-15.5); Mean Corpuscular HGB CONC 32.1 g/dL (32.0-36.0); Mean Corpuscular Hemoglobin 30.4 pg (27.0-33.0); Mean Corpuscular Volume 94.8 fL (81.6-98.3); Mean Platelet Volume 9.2 fL (7.4-10.4); Platelet Count 467 10x3/uL (150-450); RBC Distribution Width 16.6 % (11.5-14.5); Red Blood Cell (RBC) Count 3.68 10x6/uL (3.90-5.03); White Blood Cell (WBC) Count 10.5 10x3/uL (3.5-10.5)
[2024-11-09 21:31] LABS: Acetaminophen Less than 10 mcg/mL (Less than 10); Alcohol Less than 10.0 mg/dL (Less than 10); Lipase 36 U/L (8-78); Magnesium 1.6 mg/dL (1.6-2.6); Salicylate Less than 8.0 mg/dL (Less than 8.0)
[2024-11-09 21:32] LABS: ALT (SGPT) 28 U/L (8-55); AST (SGOT) 32 U/L (5-34); Albumin 3.5 g/dL (3.4-4.8); Alkaline Phosphatase 64 U/L (40-110); Anion Gap 17 mmol/L (10-20); BUN (Urea Nitrogen) 17 mg/dL (9.8-20.1); Bilirubin, Total 0.4 mg/dL (0.2-1.2); Calc. Creatinine Clearance 0 mL/min (70-130); Calcium 9.5 mg/dL (7.8-10.44); Carbon Dioxide 20 mmol/L (23-31); Chloride 105 mmol/L (98-107); Estimated GFR 51; Glucose 124 mg/dL (83-110); Potassium 4.1 mmol/L (3.5-5.1); Protein, Total 6.5 g/dL (5.8-8.1); Sodium 138 mmol/L (136-145)
[2024-11-09 21:35] LABS: Amphetamine Not Detected (NotDetected); Bacteria/HPF None Seen HPF (None Seen); Barbiturates Screen Not Detected (NotDetected); Benzodiazepine Screen Not Detected (NotDetected); CAUTI Indications for Culture Alt mental st,lethar; Cocaine Metabolite Screen Not Detected (NotDetected); Methadone Not Detected (NotDetected); Methamphetamine Not Detected (NotDetected); Opiate Screen Not Detected (NotDetected); Oxycodone Screen Not Detected (NotDetected); Phencyclidine (PCP) Not Detected (NotDetected); RBC/HPF None Seen HPF (0-3); Squamous Epithelial 0-3 HPF (0-3); THC/Cannabinoid Screen Not Detected (NotDetected); Tricyclic Screen Not Detected (NotDetected); WBC/HPF 0-3 HPF (0-3)
[2024-11-09 21:36] LABS: Urine Culture Reflex No No
[2024-11-09 21:38] LABS: Troponin I Less than 0.010 ng/mL (< 0.028)
[2024-11-10] MEDS ORDERED: Acetaminophen 650 MG Suppository PR PRN (00:39)
[2024-11-10] MEDS ORDERED: Vancomycin 1.5 GM in Sodium Chloride 0.9% 500 ML IVPB SCH (00:45)
[2024-11-10 00:46] VITALS: BMI 26.7
[2024-11-10] MEDS: Sodium Chloride 0.9% 1,000 ML IV SCH ×2 (00:53→03:52)
[2024-11-10] MEDS: Cefepime 2 GM in Sodium Chloride 0.9% 100 ML IVPB SCH (00:58)
[2024-11-10] MEDS: VANCOMYCIN 1.25 GM/250 ML BAG 1.25 GM in Premix 1 BAG IVPB SCH (01:02)
[2024-11-10] MEDS ORDERED: VANCOMYCIN 1.25 GM/250 ML BAG 1.25 GM in Premix 1 BAG IVPB SCH (01:15)
[2024-11-10 02:04] LABS: ALV-art Gradient 54.055 mmHg (0-20); Actual Bicarbonate (HCO3a) 21.9 mEq/L (22-28); Analyzer IN Cardio CS ICU; Base Excess (BEa) -2.9 mEq/L (-2.0 to +3.0); CO2 Tension 37.9 mmHg (35.0-45.0); Calcium, Ionized (arterial) 1.17 mmol/L (1.12-1.30); Carboxyhemoglobin (COHb) 0.1 gm% (0.0-3.0); Critical Notified By: CP.PH; Hematocrit-ABG 34 % (36.0-47.0); Hemoglobin (Hb) 11.5 g/dL (12.0-16.0); O2 Tension (PaO2), arterial 48.3 mmHg (> 60.0); Potassium - ABG Lab 3.65 mmol/L (3.70-5.30); Puncture Site Left Radial artery; RapidComm Collect By CP.PH; pH, Arterial 7.379 (7.35-7.45)
[2024-11-10] MEDS: metroNIDAZOLE 500 MG in Premix 1 BAG IVPB SCH (03:45)
[2024-11-10 04:35] LABS: #Basophils 0.09 10x3/uL (0.0-0.2); #Eosinophils 0.27 10x3/uL (0.0-0.5); #Monocytes 1.01 10x3/uL (0.0-1.1); #Neutrophils 4.48 10x3/uL (1.5-8.4); %Basophils 1.2 % (0.0-2.0); %Eosinophils 3.5 % (0.0-6.0); %Lymphocytes 24.6 % (18.0-47.0); %Neutrophils 57.4 % (40.0-75.0); Hematocrit 33.3 % (34.9-44.5); Hemoglobin 10.8 g/dL (12.0-15.5); Mean Corpuscular HGB CONC 32.4 g/dL (32.0-36.0); Mean Corpuscular Hemoglobin 30.6 pg (27.0-33.0); Mean Corpuscular Volume 94.3 fL (81.6-98.3); Mean Platelet Volume 9.5 fL (7.4-10.4); Platelet Count 421 10x3/uL (150-450); RBC Distribution Width 16.7 % (11.5-14.5); Red Blood Cell (RBC) Count 3.53 10x6/uL (3.90-5.03); White Blood Cell (WBC) Count 7.8 10x3/uL (3.5-10.5)
[2024-11-10 04:40] LABS: Anion Gap 14 mmol/L (10-20); BUN (Urea Nitrogen) 15 mg/dL (9.8-20.1); Calc. Creatinine Clearance 50 mL/min (70-130); Calcium 8.7 mg/dL (7.8-10.44); Carbon Dioxide 17 mmol/L (23-31); Chloride 110 mmol/L (98-107); Estimated GFR 68; Glucose 109 mg/dL (83-110); Magnesium 1.6 mg/dL (1.6-2.6); Potassium 3.8 mmol/L (3.5-5.1); Sodium 137 mmol/L (136-145)
[2024-11-10 06:02] LABS: Platelet Adequacy Comment Appears Increased
[2024-11-10 06:03] LABS: Anisocytosis SLIGHT = 6-15 cells (100X) (0-5/hpf); Platelet Clumps SLIGHT; Polychromasia SLIGHT = 2-3 cells (100X) (0-2/hpf)
[2024-11-10 06:04] LABS: Ovalocytes SLIGHT = 2-5 cells (100X) (0-1/hpf)
[2024-11-10] MEDS: Communication Order-Pharmacy FS ONE (09:46)
[2024-11-10] MEDS: Aspirin 300 MG Suppository PR SCH (09:47)
[2024-11-10] MEDS: Enoxaparin 40 MG (0.4 mL) SYRINGE SC SCH (09:47)
[2024-11-10] MEDS: Vancomycin 1 GM in Sodium Chloride 0.9% 250 ML 250 ML IVPB SCH ×2 (09:48→21:11)
[2024-11-10 13:08] LABS: ALV-art Gradient 68.565 mmHg (0-20); Actual Bicarbonate (HCO3a) 18.9 mEq/L (22-28); Analyzer IN Cardio CS ICU; Base Excess (BEa) -5.5 mEq/L (-2.0 to +3.0); CO2 Tension 33.1 mmHg (35.0-45.0); Calcium, Ionized (arterial) 1.18 mmol/L (1.12-1.30); Carboxyhemoglobin (COHb) 0.3 gm% (0.0-3.0); Critical Notified Whom: alnmo; Hematocrit-ABG 32 % (36.0-47.0); O2 Tension (PaO2), arterial 89.7 mmHg (> 60.0); Potassium - ABG Lab 3.78 mmol/L (3.70-5.30); Puncture Site Left Brachial artery; pH, Arterial 7.375 (7.35-7.45)
[2024-11-11] MEDS: Labetalol HCl 100 MG/20 ML VIAL SLOW IVP PRN (00:43)
[2024-11-11 04:11] LABS: #Basophils 0.12 10x3/uL (0.0-0.2); #Eosinophils 0.36 10x3/uL (0.0-0.5); #Monocytes 1.01 10x3/uL (0.0-1.1); #Neutrophils 6.32 10x3/uL (1.5-8.4); %Basophils 1.2 % (0.0-2.0); %Eosinophils 3.7 % (0.0-6.0); %Lymphocytes 18.5 % (18.0-47.0); %Monocytes 10.5 % (0.0-10.0); %Neutrophils 65.9 % (40.0-75.0); Hematocrit 31.4 % (34.9-44.5); Mean Corpuscular HGB CONC 31.8 g/dL (32.0-36.0); Mean Corpuscular Hemoglobin 30.8 pg (27.0-33.0); Mean Corpuscular Volume 96.6 fL (81.6-98.3); Mean Platelet Volume 9.4 fL (7.4-10.4); Platelet Count 388 10x3/uL (150-450); RBC Distribution Width 16.2 % (11.5-14.5); Red Blood Cell (RBC) Count 3.25 10x6/uL (3.90-5.03); White Blood Cell (WBC) Count 9.6 10x3/uL (3.5-10.5)
[2024-11-11 04:29] LABS: Anion Gap 16 mmol/L (10-20); BUN (Urea Nitrogen) 12 mg/dL (9.8-20.1); Calc. Creatinine Clearance 51 mL/min (70-130); Calcium 8.9 mg/dL (7.8-10.44); Carbon Dioxide 15 mmol/L (23-31); Chloride 114 mmol/L (98-107); Estimated GFR 69; Glucose 92 mg/dL (83-110); Potassium 3.6 mmol/L (3.5-5.1); Sodium 141 mmol/L (136-145)
[2024-11-11 05:06] LABS: Vancomycin, Random 29.5 ug/mL (See Comment)
[2024-11-12 04:10] LABS: Anion Gap 14 mmol/L (10-20); BUN (Urea Nitrogen) 14 mg/dL (9.8-20.1); Calc. Creatinine Clearance 45 mL/min (70-130); Calcium 8.4 mg/dL (7.8-10.44); Carbon Dioxide 16 mmol/L (23-31); Chloride 109 mmol/L (98-107); Estimated GFR 59; Glucose 129 mg/dL (83-110); Potassium 3.3 mmol/L (3.5-5.1); Sodium 136 mmol/L (136-145)
[2024-11-12 04:32] LABS: #Eosinophils 0.36 10x3/uL (0.0-0.5); #Monocytes 1.02 10x3/uL (0.0-1.1); #Neutrophils 5.76 10x3/uL (1.5-8.4); %Basophils 1.1 % (0.0-2.0); %Lymphocytes 19.9 % (18.0-47.0); %Monocytes 11.2 % (0.0-10.0); %Neutrophils 63.5 % (40.0-75.0); Hematocrit 32.2 % (34.9-44.5); Hemoglobin 10.3 g/dL (12.0-15.5); Mean Corpuscular Hemoglobin 30.2 pg (27.0-33.0); Mean Corpuscular Volume 94.4 fL (81.6-98.3); Mean Platelet Volume 9.2 fL (7.4-10.4); Platelet Count 374 10x3/uL (150-450); RBC Distribution Width 15.8 % (11.5-14.5); Red Blood Cell (RBC) Count 3.41 10x6/uL (3.90-5.03); White Blood Cell (WBC) Count 9.1 10x3/uL (3.5-10.5)
[2024-11-12] MEDS: Potassium Chloride 20 MEQ TAB PO SCH (09:01)
[2024-11-12] MEDS: Losartan 50 MG TAB PO SCH (09:02)
[2024-11-12] MEDS: Amlodipine 10 MG TAB PO SCH (09:02)
[2024-11-12] MEDS: Cefepime 2 GM in Sodium Chloride 0.9% 100 ML IVPB SCH (15:18)
[2024-11-12] MEDS ORDERED: Dextrose 5% in Water 1,000 ML IV PRN (17:30)
[2024-11-12] MEDS ORDERED: Dextrose 50% Abboject 50 ML SYRINGE SLOW IVP PRN (17:30)
[2024-11-12] MEDS ORDERED: Glucagon 1 MG/ML KIT IM PRN (17:30)
[2024-11-12] MEDS: Insulin Lispro 100 UNIT/ML 10 ML VIAL SC PRN (17:40)
[2024-11-12] MEDS: Magnesium Sulfate/D5W 1 GM in Premix 1 BAG IVPB SCH (21:41)
[2024-11-12] MEDS: Potassium Chloride 20 MEQ in Premix 1 BAG IVPB SCH (21:46)
[2024-11-12] MEDS: Labetalol HCl 100 MG/20 ML VIAL SLOW IVP SCH (21:47)
[2024-11-13 04:16] LABS: #Eosinophils 0.39 10x3/uL (0.0-0.5); #Monocytes 1.01 10x3/uL (0.0-1.1); #Neutrophils 5.32 10x3/uL (1.5-8.4); %Basophils 1.2 % (0.0-2.0); %Eosinophils 4.5 % (0.0-6.0); %Lymphocytes 20.9 % (18.0-47.0); %Monocytes 11.7 % (0.0-10.0); %Neutrophils 61.5 % (40.0-75.0); Hematocrit 33.1 % (34.9-44.5); Hemoglobin 10.9 g/dL (12.0-15.5); Mean Corpuscular HGB CONC 32.9 g/dL (32.0-36.0); Mean Corpuscular Hemoglobin 30.5 pg (27.0-33.0); Mean Corpuscular Volume 92.7 fL (81.6-98.3); Platelet Count 372 10x3/uL (150-450); RBC Distribution Width 15.8 % (11.5-14.5); Red Blood Cell (RBC) Count 3.57 10x6/uL (3.90-5.03); White Blood Cell (WBC) Count 8.7 10x3/uL (3.5-10.5)
[2024-11-13 05:02] LABS: Vancomycin, Random 30.7 ug/mL (See Comment)
[2024-11-13 05:03] LABS: Anion Gap 13 mmol/L (10-20); BUN (Urea Nitrogen) 13 mg/dL (9.8-20.1); Calc. Creatinine Clearance 49 mL/min (70-130); Calcium 8.8 mg/dL (7.8-10.44); Carbon Dioxide 17 mmol/L (23-31); Chloride 112 mmol/L (98-107); Estimated GFR 66; Glucose 140 mg/dL (83-110); Potassium 4.1 mmol/L (3.5-5.1); Sodium 138 mmol/L (136-145)
[2024-11-13] MEDS: Aspirin 81 mg Enteric Coated Tablet PO SCH (09:39)
[2024-11-13 10:47] VITALS: TEMP 98.8
[2024-11-13 10:51] VITALS: BP 180/84
== END 2024-11-13 14:00 | disposition home or self-care (01) | DRG 177 ==
LOC: CSHERS 19:30 → CSHTELE 23:28 → OBSVTOIN 11-10 00:31
PROVIDERS: ADMIT Family Medicine; ATTEND Internal Medicine
DX: J15.69 Pneumonia due to other Gram-negative bacteria (principal); G93.41 Metabolic encephalopathy; J96.01 Acute respiratory failure with hypoxia; I13.0 Hypertensive heart and chronic kidney disease with heart failure and stage 1 through stage 4 chronic kidney disease, or unspecified chronic kidney disease; I50.32 Chronic diastolic (congestive) heart failure; E87.20 Acidosis, unspecified; E87.6 Hypokalemia; N18.30 Chronic kidney disease, stage 3 unspecified; E11.22 Type 2 diabetes mellitus with diabetic chronic kidney disease; Z98.890 Other specified postprocedural states; K21.9 Gastro-esophageal reflux disease without esophagitis; I25.10 Atherosclerotic heart disease of native coronary artery without angina pectoris; E03.9 Hypothyroidism, unspecified; E78.5 Hyperlipidemia, unspecified; F32.A Depression, unspecified; I77.9 Disorder of arteries and arterioles, unspecified; Z79.84 Long term (current) use of oral hypoglycemic drugs; Z91.040 Latex allergy status; Z88.8 Allergy status to other drugs, medicaments and biological substances; Z88.1 Allergy status to other antibiotic agents; Z79.899 Other long term (current) drug therapy; Z79.82 Long term (current) use of aspirin
CPT/HCPCS: 36415; 36416; 36600; 51701; 70450; 71045; 80048; 80053; 80202; 80306; 80307; 81001; 82330; 82375; 82805; 83605; 83690; 83735; 84443; 84484; 85025; 87040; 93005; 94760; 96360; J0692; J1650; J1815; J3370; J3475; J3480; J7030; J7050